=== PATIENT | male | born 1940 | race Caucasian/White ===

== ENCOUNTER 2025-05-29 10:44 | Emergency (ER) | payer MEDICARE, BC, SELFPAY ==
[2025-05-29 10:47] VITALS: BP 112/43
--- NOTE | 2025-05-29 11:10 | ED.GENMED ---
History of Present Illness
General
Chief Complaint: Fall
Source: patient
Exam Limitations: none
Time Seen by Provider: 05/29/25 10:52
Nursing documentation reviewed up to this point in time: agreed with
History of Present Illness
History of Present Illness:
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
Patient was being transported yesterday in a wheelchair van and slipped out of the wheelchair landing on his buttocks. He does not ambulate. He reports family noticed bruising to his buttock region and sent patient to the ER.
Patient denies hitting his head. He denies any neck pain. Patient is followed at [facility] for his cancer.
Past History
Past History
ED Past Medical History: Cancer (Kidney, prostate) and Hypercholesterolemia
ED Past Surgical History: Cholecystectomy and Urological (Right nephrectomy)
Social History
Tobacco: Former smoker
Alcohol: Occasional
Drug: None
Personal:
Living: with family
Phy Exam
General Physical Exam
General Presentation: no apparent distress
General age: appears stated age
General Skin: warm and dry
General Habitus: elderly
General Mental: alert
General Hydration: appears well hydrated
Cardiovascular Exam
Cardiovascular Exam: regular rate/rhythm, no murmur and normal peripheral pulses
Pulmonary Exam
Pulmonary Exam: lungs clear and no respiratory distress
Neurological Exam
Neurological Exam: alert and oriented x3
Musculoskeletal Exam
Musculoskeletal Exam: other (+ Ecchymosis to left buttocks also nickel sized area of stage II skin breakdown to buttocks)
Skin Exam
Skin Exam: normal color and warm/dry
Psychiatric Exam
Psychiatric Exam: normal mood/affect
Course
Orders/Labs/Results
Orders:
Orders
05/29/25 11:12
Coccyx/Sacrum, 2 View CR [CR Sacrum/coccyx Min 2 View] Urgent
Comment:
Reason For Exam: contusion
Lumbar Spine Complete, 4 View [CR Lumbar Spine Comp Min 4 Vw*] Urgent
Comment:
Reason For Exam: trauma
Vital Signs
Initial and Last Documented VS:
Initial Vital Signs
Temp Pulse Resp BP Pulse Ox
97.8 F 82 20 112/43 97
05/29/25 10:47 05/29/25 10:47 05/29/25 10:47 05/29/25 10:47 05/29/25 10:47
Last Documented Vital Signs
Temp Pulse Resp BP Pulse Ox
97.8 F 82 20 112/43 97
05/29/25 10:47 05/29/25 10:47 05/29/25 10:47 05/29/25 10:47 05/29/25 11:11
MDM/Problems Addressed
MDM/Problems Addressed:
84-year-old male with recent diagnosis of stage IV lung cancer with mets to the bone in March status post debulking surgery currently on radiation presented from home. Patient was being transported yesterday after radiation and slid out of his
wheelchair hitting his buttock. Patient has small Liao bruising to left buttock no other back injury. Also noted was an incidental stage II pressure sore to the buttock region. X-rays are negative of the sacrum coccyx and lumbar spine. Patient
had no head injury no headache complaint no nausea vomiting normal mental status.
Family at bedside.
Patient is stable for discharge home. Family does report patient will be going to rehab after his radiation is complete in the next 5 doses. Family does report patient has visiting nurses at home and Pt /OT.
Chronic conditions affecting care:
Stage IV lung cancer with metastasis to spine status post debulking surgery followed at [place]
*Radiology
Radiology exam reviewed: radiology read reviewed
*Pulse Oximetry
SaO2: 97
Oxygen Mode of Delivery: Room air
Patient hypoxic: no
*Critical Care Note
Total Time (30-74mins, 75-104mins- exclusive of procedures): Not Applicable
ED Attending Note
-
Portions of this chart may have been created with voice recognition software.� Occasional wrong word or��sound alike� substitutions may have occurred due to the inherent limitations of voice recognition software.
Discharge Plan
Departure
Patient Disposition: Admit
Date of Disposition: 05/29/25
Time of Disposition: 14:27
Admit to: Telemetry
Admit to doctor: hospitalist
Presentation/result/management discussed w/ accepting MD/DO: Hospitalist
Patient with high blood pressure during this ER visit?: No
Condition: Fair
Covid-19: Not Applicable
Discharge Problem:
Contusion, pressure sore of buttock
Instructions: Contusion (DC), Pressure sores
Prescriptions:
No Action
atorvastatin 40 MG tablet
40 mg PO QPM
amlodipine 5 MG tablet
5 mg PO DAILY
aspirin 81 MG tablet,chewable
81 mg PO MOWEFR
escitalopram oxalate 10 MG tablet
10 mg PO DAILY
cholestyramine (with sugar) 4 GM powder in packet
4 gm PO DAILY
vitamins A,C,N-vera-vldvdh [PreserVision AREDS] 1 CAP capsule
2 cap PO DAILY
silodosin [Rapaflo] 8 MG capsule
8 mg PO DAILY
multivitamin with folic acid [Tab-A-John] 1 TABLET tablet
1 tab PO DAILY
ascorbic acid (vitamin C) [Vitamin C] 500 MG tablet
1,000 mg PO BID Qty: 60 0RF
zinc sulfate 220 MG capsule
220 mg PO DAILY Qty: 30 0RF
cholecalciferol (vitamin D3) 2,000 UNITS tablet
2,000 units PO DAILY Qty: 30 0RF
guaifenesin [Mucus Relief ER] 600 MG tablet extended release 12hr
600 mg PO Q12 0RF
dexamethasone 2 MG tablet
6 mg PO DAILY 9 Days Qty: 27 0RF
prednisone 50 mg tablet
50 mg PO DAILY Qty: 1 0RF
Referrals:
Juventino Cook MD [Family Provider, Family Practice]
WOUND CARE,CENTER [[facility]]
Activity Restrictions/Additional Instructions:
As discussed follow-up with family doctor for reevaluation, wound center if needed return if any worsening of symptoms
Interventions
Interventions:
*Risk Screen - Suicide Last Done: 05/29/25 10:47
*General Assessment Last Done: 05/29/25 10:47
*Neglect/Abuse Screening Last Done: 05/29/25 10:47
Discharge Date and Time
Print Language: FIJIAN
[2025-05-29 13:00] VITALS: BP 149/65
[2025-05-29 14:00] VITALS: BP 142/66
--- NOTE | 2025-05-29 14:25 | EDCM ---
was asked to see pt and his family by Sol CARDONA. I met with pt, his and daughter bedside in ED. Per daughter, they are trying to get him into [facility] but he needs a medical form completed. They asked his Oncology team at [facility] but
they were told since he was last admitted here and is now in the ED maybe we could complete it. Oncology also suggested having PCP complete it but family said the PCP has not been closely following since his cancer diagnosis. Pt was last admitted to
in 2022 and has not been seen here since then. Pt agreed that his medical history has changed a lot since 2022. I suggested they ask [facility] again to complete the form as we do not have his most updated medical history here. Pt and
family in agreement. Sol updated.
== END 2025-05-29 18:47 | disposition home or self-care (01) ==
LOC: EMR 10:44
PROVIDERS: EMERGENCY PHYSICIAN Emergency Medicine; FAMILY PHYSICIAN Family Medicine
DX: L89.302 Pressure ulcer of unspecified buttock, stage 2 (principal); S30.0XXA Contusion of lower back and pelvis, initial encounter; W01.198A Fall on same level from slipping, tripping and stumbling with subsequent striking against other object, initial encounter; E78.00 Pure hypercholesterolemia, unspecified; I25.2 Old myocardial infarction; C34.90 Malignant neoplasm of unspecified part of unspecified bronchus or lung; Z85.118 Personal history of other malignant neoplasm of bronchus and lung; Z85.528 Personal history of other malignant neoplasm of kidney; Z87.891 Personal history of nicotine dependence; Z90.49 Acquired absence of other specified parts of digestive tract; Z90.5 Acquired absence of kidney; Z92.3 Personal history of irradiation
CPT/HCPCS: 99283; 72110; 72220

== ENCOUNTER 2025-06-06 16:07 | Inpatient (IN) | payer MEDICARE, BC, SELFPAY ==
[2025-06-06 11:55] VITALS: BP 119/71; BMI 24.4
--- NOTE | 2025-06-06 12:53 | ED.GENMED ---
History of Present Illness
General
Chief Complaint: Skin Problem
Source: patient, spouse and family (Daughter)
Time Seen by Provider: 06/06/25 12:28
History of Present Illness
History of Present Illness:
History from all 3. Patient is an 84-year-old male. Fell on May 29. Hit his buttock. Has had an ongoing wound in this general area but appears worse after the fall. Also concerned about a wound on the heel. Significant issues with ADL.
Lives at home. There is concern and inability to handle things at home at this time. No fever or chills. Primarily presents for wound evaluation and possible issues with ADL
Past History
Past History
ED Past Medical History: Cancer (Kidney, prostate), Hypercholesterolemia and Other (Paraplegia)
ED Past Surgical History: Cholecystectomy, Orthopedic and Urological (Right nephrectomy)
Social History
Tobacco: Former smoker
Alcohol: Occasional
Drug: None
Personal:
Living: with family
Phy Exam
Physical Exam
Physical Exam:
GENERAL: Alert and oriented in no apparent distress
EYE: Orbits normal.
NECK: Supple, no significant adenopathy.
ENT: Pharynx without erythema
CARDIAC: Regular rate and rhythm without any obvious murmurs.
LUNGS: Clear breath sounds,normal
ABDOMEN: Soft, without focal tenderness or distention
NEUROLOGICAL: Alert and oriented , paraplegia
SKIN: Warm and dry, large area of ecchymosis to the posterior sacral area with some surrounding erythema. No fluctuance no drainage. Some skin breakdown in this area. Open wound to the right heel with no obvious erythema.
MUSCULOSKELETAL: No edema,no deformity.Good color
PSYCH: Normal and appropriate interaction.
Course
Orders/Labs/Results
Orders:
Orders
06/06/25 12:51
Case Management Consult ONCE
Case Management Consult: Discharge Planning
IV Insert/Care/Rem.- Treatment PRN
06/06/25 12:59
CT Pelvis W/o Iv Contrast Urgent
Comment:
Reason For Exam: Evaluate depth of sacral wound
06/06/25 13:06
Basic Metabolic Panel Urgent
Complete Blood Count/With Diff Urgent
06/06/25 15:07
Piperacillin/Tazo 3.375 Gram [Zosyn] 3.375 gram in 50 ml IV NOW
06/06/25 15:42
Admit/Transfer Patient As Directed
Co-Sign Provider:
Level of Care: Inpatient admission
Assign to:: Medical/Surgical
Physician / Group: htay
Diagnosis: infected decubitus ulcer, Heel ulcer
Reason for Hospitalization: infected decubitus ulcer, Heel ulcer
Expected length of stay greater than two midnights?: Yes
ELOS- Estimated Length of Stay in days: 4
I certify the patient meets the requirements for IP care: Yes
06/06/25 15:44
Code Status As Directed
Resuscitation Status: Full Code
Abnormal Lab Results
06/06/25
13:06
WBC 15.4 H 10^3/uL
(4.8-10.8)
Hgb 10.6 L g/dL
(13.0-18.0)
Hct 35.7 L %
(39.0-52.0)
MCV 75.0 L fL
(80.0-94.0)
MCH 22.3 L pg
(27.0-31.0)
MCHC 29.7 L g/dL
(33.0-37.0)
RDW 19.9 H %
(11.5-14.5)
Abs Immat Gran (auto) 0.1 H 10^3/uL
(0-0.05)
Absolute Neuts (auto) 14.0 H 10^3/uL
(1.4-6.5)
Absolute Lymphs (auto) 0.4 L 10^3/uL
(1.2-3.4)
Absolute Monos (auto) 0.8 H 10^3/uL
(0.1-0.6)
Immature Gran % 0.6 H %
(0-0.5)
Neutrophils % 90.8 H %
(42.2-75.2)
Lymphocytes % 2.6 L %
(20.5-51.1)
Chloride 109 H mmol/L
(98-107)
BUN 28 H mg/dl
(9-20)
06/06/25 13:06
06/06/25 13:06
Vital Signs
Initial and Last Documented VS:
Initial Vital Signs
Temp Pulse Resp BP Pulse Ox
98.4 F 87 16 119/71 96
06/06/25 11:55 06/06/25 11:55 06/06/25 11:55 06/06/25 11:55 06/06/25 11:55
Last Documented Vital Signs
Temp Pulse Resp BP Pulse Ox
98.5 F 82 15 119/66 95
06/06/25 16:00 06/06/25 15:59 06/06/25 15:59 06/06/25 15:59 06/06/25 15:59
MDM/Problems Addressed
Differential Diagnosis Includes:
Wound and area of ecchymosis appears more dried blood then necrotic tissue. Possibly a slight secondary infectious component but mostly pressure sores or skin breakdown. Significant ADL issues. Workup in progress
*Radiology
Radiology exam reviewed: radiology read reviewed (Right paramidline decubitus no bony extension)
*Pulse Oximetry
SaO2: 96
Oxygen Mode of Delivery: Room air
Patient hypoxic: no
*Critical Care Note
Total Time (30-74mins, 75-104mins- exclusive of procedures): Not Applicable
Update Note
Update Note:
Infected decubitus. ADL issues. Inpatient IV antibiotics and further care. Case management involved
ED Attending Note
-
Portions of this chart may have been created with voice recognition software.� Occasional wrong word or��sound alike� substitutions may have occurred due to the inherent limitations of voice recognition software.
Discharge Plan
Departure
Patient Disposition: Admit
Date of Disposition: 06/06/25
Time of Disposition: 15:08
Presentation/result/management discussed w/ accepting MD/DO: Hospitalist
Discharge Problem:
Infected decubitus ulcer, Heel ulcer, Leukocytosis, ADL issues
Interventions
Interventions:
*Risk Screen - Suicide Last Done: 06/06/25 11:55
*General Assessment Last Done: 06/06/25 11:55
*Neglect/Abuse Screening Last Done: 06/06/25 11:55
ED-Skin Assessment Last Done: 06/06/25 14:05
[2025-06-06 13:17] LABS: Hematocrit 35.7 % (39.0-52.0); Hemoglobin 10.6 g/dL (13.0-18.0); Mean Corp Hgb Conc. 29.7 g/dL (33.0-37.0); Mean Corpuscular Volume 75.0 fL (80.0-94.0); Nucleated Red Blood Cells % 0 % (-); Platelet Count 266 10^3/uL (130-400); Red Cell Dist. Width 19.9 % (11.5-14.5)
[2025-06-06 13:37] LABS: Blood Urea Nitrogen 28 mg/dl (9-20); Calcium 10.2 mg/dl (8.4-10.2); Carbon Dioxide 30 mmol/L (22-30); Chloride 109 mmol/L (98-107); Estimated Creatinine Clearance 72 ml/min; Glucose 91 mg/dl (70-99); Sodium 139 mmol/L (135-145); eGFR > 60.00
--- NOTE | 2025-06-06 14:34 | CM ---
Patient seen at bedside with and daughter in ED. Patient states that he is needing SNF. Patient states that she and daughter with [facility] PT/OT and aides from [facility]- 4 hours daily have been caring for patient since 05/19/25 when
[facility] Patient had been at rehab and was getting better prior to a fall while going to radiation per daughter. Patient and family confirm he is not going for any further radiation or treatment for issues with his
back. Patient for CT scan and therapy assessment. But patient daughter and indicate that patient had been talking to [facility]; Carolyn and Sudeep admissions staff and have an interview scheduled for sun of next week for admission. Patient daughter
understands that patient has until 06/18/25 to enter SNF under qualifying prior stay at [facility]. Patient is in agreement and wants to go to [facility] for care. Patient PCP is Dr. Cook and he uses the [facility] in [place] for his pharmacy needs.
Pending physician assessment INP vs OBS CM will return to complete paperwork. CM will continue to follow for discharge planning needs.
Plan; SNF; [facility] need referral via all scripts
[2025-06-06] MEDS: ZOSYN 50 IV ×2 (15:14→21:57)
--- NOTE | 2025-06-06 15:14 | HPS.HSE ---
Family Physician
-
Family Physician: Juventino Cook
Chief Complaint
-
Primarily presents for wound evaluation and possible issues with ADL
History of Present Illness
HPI
84M from home , former smoker, Paraplegic, DLP, HTN, Depression, HC Kidney and prstate CA, R Nephrectomy, Unilateral Lt Kidney with presrved renal function seen at ER;
- Fell on May 29 and hit his buttock
- ongoing wound in this general area but appears worse after the fall
- Also concerned about a wound on the heel.
- Significant issues with ADL. Lives at home
- concern and inability to handle things at home at this time.
HX stage IV lung CA , Mets to Lx spine
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
He became paraplegic after above surgery
Lives at home and Paraplegic, WC Bound
No fever or chills.
Primarily presents for wound evaluation and possible issues with ADL - CRM involved at ER
Medical History
Past Medical History
Past Medical History: Reports Cancer (Cancer (Kidney, prostate), ), HTN, Hypercholesterolemia, Psychiatric (depression ) and Other (paraplegic )
Past Surgical History: Reports Cholecystectomy, Orthopedic and Urological ( R Nephrectomy)
Social History
Tobacco: Former Smoker
Family History
Family History: Not pertinent
Allergies / Home Medications
Allergies reflects when Allergies were last updated in [facility].
Home Medications with original date entered in [facility]
Allergy/Medication List:
Allergies
Allergy/AdvReac Type Severity Reaction Status Date / Time
Iodinated Contrast Media Allergy facial Verified 06/06/25 11:54
swelling
procaine (From Novocain) Allergy syncope Verified 06/06/25 11:54
shellfish derived Allergy Swelling Verified 06/06/25 11:54
Home Medications
amlodipine 5 mg tablet 5 mg PO DAILY Blood pressure 07/22/21
aspirin 81 mg chewable tablet 81 mg PO MOWEFR Blood clot prevention/tx 07/22/21
atorvastatin 40 mg tablet 40 mg PO QPM High cholesterol 07/22/21
cholestyramine (with sugar) 4 gram powder for susp in a packet 4 gm PO DAILY High cholesterol 07/22/21
escitalopram oxalate 10 mg tablet 10 mg PO DAILY ANXIETY/DEPRESSION 07/22/21
multivitamin with folic acid 400 mcg tablet (Tab-A-John) 1 tab PO DAILY Supplement 07/22/21
silodosin 8 mg capsule (Rapaflo) 8 mg PO DAILY Urinary issue 07/22/21
vitamins A,C,S-dgvd-wggonn 4,296 mcg-226 mg-90 mg capsule (PreserVision AREDS) 2 cap PO DAILY Supplement 07/22/21
ascorbic acid (vitamin C) 500 mg tablet (Vitamin C) 1,000 mg (2 x 500 mg) PO BID #60 tabs 07/23/21
cholecalciferol (vitamin D3) 50 mcg (2,000 unit) tablet 2,000 units PO DAILY #30 tabs 07/23/21
dexamethasone 2 mg tablet 6 mg (3 x 2 mg) PO DAILY 9 days ##27 07/23/21
guaifenesin 600 mg tablet, extended release 12 hr (Mucus Relief ER) 600 mg PO Q12 07/23/21
zinc sulfate 50 mg zinc (220 mg) capsule 220 mg (4.4 x 50 mg zinc (220 mg)) PO DAILY #30 caps 07/23/21
prednisone 50 mg tablet 50 mg PO DAILY #1 tab 02/09/23
Review of Systems
-
Constitutional: Reports No Symptoms
EENT: Reports No Symptoms
Respiratory: Reports No Symptoms
Cardiac: Reports No Symptoms
Abdomen/GI: Reports No Symptoms
: Reports No Symptoms and Other (scral decub and non healing R heel ulcer )
Skin: Reports No Symptoms
Neurological: Reports No Symptoms
Endocrine: Reports No Symptoms
Hematologic/Lymphatic: Reports No Symptoms
Psych: Reports No Symptoms
Physical Exam
Vital Signs
Vital Signs
Temp Pulse Resp BP Pulse Ox
98.3 F 87 16 119/71 96
06/06/25 14:00 06/06/25 11:55 06/06/25 11:55 06/06/25 11:55 06/06/25 12:54
Physical Exam
General: Well Developed, Well Nourished and No Apparent Distress
HEENT: NormoCephalic, Moist mucous membranes and Atraumatic
Respiratory: Clear
Cardiac: S1/S2 and Regular Rhythm; No Murmur or Rub
GI: Soft, Non Tender, Non Distended and Normal Bowel Sounds; No Organomegaly
Rectal: Deferred by Provider
Musculoskeletal: No Clubbing, No Cyanosis and No Edema
Skin: Other (large area of ecchymosis to the posterior sacral area with some surrounding erythema. No fluctuance no drainage. Some skin breakdown in this area. Open wound to the right heel with no obvious erythema.)
Neuro: Awake, Alert, AO x 3 and Other (Paraplegic )
Laboratory Results
-
06/06/25 13:06
06/06/25 13:06
Data Reviewed
-
CT Scan: Report Reviewed by me
Impression/Plan
-
Vital Signs
Temp Pulse Resp BP Pulse Ox
98.3 F 87 16 119/71 96
06/06/25 14:00 06/06/25 11:55 06/06/25 11:55 06/06/25 11:55 06/06/25 12:54
Labs
06/06/25
13:06
WBC 15.4 H
Hgb 10.6 L
Plt Count 266
06/06/25
13:06
Sodium 139
Chloride 109 H
Carbon Dioxide 30
BUN 28 H
Creatinine 0.7
Estimated Creat Clear 72
eGFR > 60.00
CT Pelvis W/o Iv Contrast
- Right para midline sacral decubitus ulcer measures approximately 2.3 (transverse) x 1.0 (depth) x 5.4 (craniocaudal) cm, at the level of the sacrococcygeal junction.
extension to the underlying bone.
- Limited evaluation of pelvic viscera demonstrates diverticulosis coli.
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
- Evaluation of additional soft tissue structures such as ligaments and tendons is limited by CT. Grossly, no abnormalities noted.
Last hospitalist admission: 09/21/2020 - 07/23/2021
DISCHARGE DIAGNOSES:
1. Pneumonia due to COVID-19 infection.
2. Exertional hypoxia.
3. Essential hypertension.
4. Hyperlipidemia.
5. Depression.
Pending Rx reconciliation
ASSESSMENT & PLAN
R para midline sacral decubitus ulcer ( 2.3 (transverse) x 1.0 (depth) x 5.4 (craniocaudal) cm) @ level of the sacrococcygeal junction - presumed infected
- No CT evidence of extension to the underlying bone.
- RT Heel ulcer
- Paraplegic
- Leukocytosis but afebrile
- Empiric Zosyn
- WD care consult
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
He became paraplegic after above surgery
Lives at home with family WC Bound
- decompensated ADL function due to infected pressure ulcers
- CRM consult
Essential HTN
- No longer on Amlodipine
HLD
- No longer on on Lipitor
Depression
HX Kidney and prostate CA
HX R Nephrectomy
Unilateral Lt Kidney with preserved renal function
DVT Px: SQH
Full code
IP MS
[2025-06-06 15:59] VITALS: BP 119/66
[2025-06-06 18:00] VITALS: BP 117/74
--- NOTE | 2025-06-06 19:30 | PTCARENOTE ---
Assumed care of patient from previous RN - patient had just arrived to unit during change of shift. Patient is alert and oriented, no complaints at this time. Pulled to bed from stretcher with dayshift staff - patient is paraplegic to LEs following
complications from back surgery earlier this year 2024. Falls at home - placed on bed alarm. Call pineda in reach, will monitor.
[2025-06-06] MEDS: NSS 1000 IV (21:55)
[2025-06-06] MEDS: LIPITOR 40 MG PO (21:56)
[2025-06-06] MEDS: TYLENOL PO ×2 (21:56→23:49)
[2025-06-06] MEDS: TYLENOL 650 MG PO (21:57)
[2025-06-06 23:00] VITALS: BP 86/55
[2025-06-06 23:09] VITALS: BP 86/64
--- NOTE | 2025-06-06 23:23 | PTCARENOTE ---
Addendum entered by Blessing Zeng RN 06/06/25 23:52:
IVF bolus ordered and provided, running now, see MAR. Straight cathed for 550mls clear yellow urine.
Original Note:
Blood pressure low during rounds, manual check 86/64 to left arm. IVFs running per MD orders. Patient offers no complaints at this time. Notified SENG Stoner - request to check bladder scan for urine retention. Patient incontinent of urine,
states he has had issues with incontinence since the surgery that paralyzed him earlier this year. Bladder scan revealed 428mls. ROOF SLATER notified of bladder scan results. Awaiting further instruction.
[2025-06-06] MEDS: NSS 250 IV (23:49)
[2025-06-07] MEDS: ZOSYN 50 IV ×4 (02:57→21:46)
[2025-06-07 03:02] VITALS: BP 90/56
--- NOTE | 2025-06-07 03:16 | PTCARENOTE ---
BP rechecked following IVF bolus -- . Notified CERTIFIED MEDICAL DOSIMETRIST - stat dose Midodrine ordered. Will provide once verified by pharmacy. Patient is resting comfortably in bed, will monitor.
[2025-06-07] MEDS: TYLENOL 650 MG PO ×5 (03:22→21:44)
[2025-06-07 06:56] LABS: Hematocrit 29.1 % (39.0-52.0); Hemoglobin 8.9 g/dL (13.0-18.0); Mean Corp Hgb Conc. 30.6 g/dL (33.0-37.0); Mean Corpuscular Volume 73.1 fL (80.0-94.0); Platelet Count 225 10^3/uL (130-400); Red Cell Dist. Width 19.3 % (11.5-14.5)
[2025-06-07 07:31] LABS: Blood Urea Nitrogen 29 mg/dl (9-20); Calcium 9.3 mg/dl (8.4-10.2); Carbon Dioxide 28 mmol/L (22-30); Chloride 107 mmol/L (98-107); Estimated Creatinine Clearance 50 ml/min; Glucose 92 mg/dl (70-99); Potassium 4.2 mmol/L (3.5-5.1); Sodium 136 mmol/L (135-145); eGFR > 60.00
[2025-06-07 07:47] VITALS: BP 98/56
[2025-06-07] MEDS: LOW STRENGTH ASPIRIN 81 MG PO (09:35)
[2025-06-07] MEDS: NORVASC PO (09:38)
--- NOTE | 2025-06-07 13:33 | W.PN.HOSP.TC ---
Today's Communication/Plan
-
Assessment / Plan
Assessment / Plan
General: No Apparent Distress, Comfortable and Conversant
HEENT: NormoCephalic, Moist mucous membranes, Atraumatic
Respiratory: Clear and Non Labored Respirations
Cardiac: S1/S2 and Regular Rhythm; No Rub or Gallop
GI: Soft, Non Tender, Non Distended and Normal Bowel Sounds
Musculoskeletal: No Edema, no deformity
Skin: Warm and dry, sacral ulcer
: NO Sidid[place]
Neuro: Awake, Alert, no tremor
Psych: Calm and cooperative
Mr. Arreola is a 84-year-old male with a medical history of stage IV lung cancer with mets to spine, paraplegia following spinal injury following debulking surgery for metastasis, and hypertension who presented for evaluation of sacral ulcer. He
fell on May 29 and injured his buttocks. The wound at the area has become grossly worse since that time. He is having difficulty with ADLs due to his wound. In the ED his sacral wound appeared infected and so he was admitted for further
evaluation and management.
Infected sacral wound:
- No evidence of osteomyelitis or abscess on imaging
- Continue antibiotics with Zosyn
- Local wound care, wound care team consulted
- Also has additional right heel ulcer to be addressed by wound care team
- IV fluids
- Remains afebrile
DVT prophylaxis: Lovenox
CODE STATUS: Full code
Anticipated Discharge: 24 - 48 hours
Subjective/Interval History
-
Date of Service: June 07, 2025
Patient was seen and examined at bedside this morning. Continuing antibiotics and local wound care for sacral ulcer.
Objective Data
-
Labs:
Laboratory Results
06/07/25
06:23
WBC 14.7 H
Hgb 8.9 L
Hct 29.1 L
Plt Count 225
Sodium 136
Potassium 4.2
Chloride 107
Carbon Dioxide 28
BUN 29 H
Creatinine 1.0
Glucose 92
Calcium 9.3
Vital Signs:
Vital Signs
Temp Pulse Resp BP Pulse Ox
98.8 F 80 16 98/56 96
06/07/25 07:47 06/07/25 09:38 06/07/25 07:47 06/07/25 09:38 06/07/25 10:30
I&O
06/06/25 06/07/25 06/08/25
06:59 06:59 06:59
Output Total 550 / 550
Balance -550 / -550
Review of Systems
-
History Source: Patient
All other systems: Reviewed and negative
Physical Exam
-
General: No Apparent Distress
[2025-06-07 15:38] VITALS: BP 104/53
[2025-06-07] MEDS: NSS 1000 IV (15:39)
[2025-06-07] MEDS: LOVENOX 40 MG SC (17:16)
[2025-06-07] MEDS: LIPITOR 40 MG PO (17:16)
[2025-06-07] MEDS: NSS IV (17:49)
[2025-06-07 23:00] VITALS: BP 97/48
--- NOTE | 2025-06-07 23:48 | W.PN.UPDATE ---
Update Note
Progress Note Update
Patient is hypotensive with bp 84/42, hr 90. Asymptomatic. NSS bolus of 250cc and one time order of midodrine 5mg was given.
[2025-06-08] MEDS: NSS 250 IV (00:25)
[2025-06-08] MEDS: TYLENOL PO ×3 (00:25→03:07)
[2025-06-08] MEDS: ZOSYN 50 IV ×4 (02:46→20:24)
[2025-06-08 06:00] VITALS: BP 116/66; BP 125/75
[2025-06-08 07:00] VITALS: BP 108/65
[2025-06-08] MEDS: LOW STRENGTH ASPIRIN 81 MG PO (09:18)
[2025-06-08] MEDS: TYLENOL 650 MG PO ×4 (09:19→20:22)
[2025-06-08] MEDS: NORVASC PO (09:19)
--- NOTE | 2025-06-08 09:28 | CM ---
Call received from Marvel's daughter, Izabela Bey, who is following up regarding admission to [facility]. Izabela advised that her father was to have an interview/meeting at [facility] on June 10, 2025. Financial information was provided
to [facility] by family.
Referral sent to [facility] via [facility] today for consideration of admission.
Plan: Follow up with [facility] regarding acceptance.
[2025-06-08 11:02] VITALS: BMI 24.4
--- NOTE | 2025-06-08 11:06 | WOUNDNOTE ---
MID UPPER BACK
--- NOTE | 2025-06-08 11:10 | WOUNDNOTE ---
[facility] RN note: Patient admitted with infected decubitus ulcer.
See H&P for complete history. Recent fall out of wheelchair onto buttocks.
PMH: Past Medical History: Reports Cancer (Cancer (Kidney, prostate), ), HTN, Hypercholesterolemia, Psychiatric (depression ) and Other (paraplegic )
Past Surgical History: Reports Cholecystectomy, Orthopedic and Urological ( R Nephrectomy)
Wound Location and type/assessment: Patient admitted with: DTI of Sacrum, dark maroon/purple discolored skin, no odor and scant drainage. Pelvis CT showed no bone involvement. Patient incontinent of urine and stool during assessment, student nurse
assisted with care. Patient states he has no feeling in legs, unable to move them during turning. R lateral and medial heel with unstageable PI, dark brown eschar laterally, flat light purple blister medially. L heel intact, L lateral ankle with
unstageable PI and L plantar foot with dry blood filled appearing blister. Offloading heel boots in use that patient states were started here on admission. Middle upper back with scabbing and blanchable red line from past surgery. R elbow with tiny
skin tear, scant drainage. Patient confirmed he has been in bed allot.
Appetite: Fair, dietary following.
Pressure redistribution devices in place: Centrella max air bed in use, air cushion and TruVue lite heel boots.
Plan: Foam dressings changed, painted eschar on R heel, L lateral ankle with Betadine and silicone foam. Adaptic and silicone foam applied to Sacrum, suspect will open up and start to drain more. May need surgical consult if does not improve. Will
order Santyl to start tomorrow but stool might contaminate area. Repositioned onto R semi side lying position with assist of student nurse. Foam dressing changed on R arm and upper back applied protective foam.
Will confirm orders with hospitalist and updated nurse Shanti, recommended male external urine research & analytics manager.
Updated care plan and will follow as needed.
Note to case management of equipment requested for discharge: SNF
Recommend follow up at wound care center upon discharge.
[2025-06-08 11:36] LABS: Hematocrit 28.2 % (39.0-52.0); Hemoglobin 8.5 g/dL (13.0-18.0); Mean Corp Hgb Conc. 30.1 g/dL (33.0-37.0); Mean Corpuscular Volume 74.4 fL (80.0-94.0); Nucleated Red Blood Cells % 0 % (-); Platelet Count 223 10^3/uL (130-400); Red Cell Dist. Width 19.4 % (11.5-14.5)
--- NOTE | 2025-06-08 11:44 | W.PN.HOSP.TC ---
Today's Communication/Plan
-
Inflammatory markers
Anemia labs
ID consult
Surgical consult
Assessment / Plan
Assessment / Plan
General: No Apparent Distress, Comfortable and Conversant
HEENT: NormoCephalic, Moist mucous membranes, Atraumatic
Respiratory: Clear and Non Labored Respirations
Cardiac: S1/S2 and Regular Rhythm; No Rub or Gallop
GI: Soft, Non Tender, Non Distended and Normal Bowel Sounds
Musculoskeletal: No Edema, no deformity
Skin: Warm and dry, sacral ulcer
: NO Siddiqui
Neuro: Awake, Alert, no tremor
Psych: Calm and cooperative
Sepsis due to infected sacral wound -sepsis present on admission.
- No evidence of osteomyelitis or abscess on CT without contrast.
Currently on IV Zosyn
- Local wound care, wound care team consulted
Wound care nurse consulted. Note reviewed.
Surgical consult for possible debridement of sacrum. ID consult. Check inflammatory markers.
Multiple decubital wounds -noted on left lateral ankle, left heel, right lateral heel, right medial heel, sacrum. Wound care consulted.
Microcytic anemia -unknown acuity, etiology. Will check anemia labs.
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
Paraplegia -after spinal debulking surgery for acute cord compression at [facility].
Essential hypertension
Hyperlipidemia -atorvastatin.
Depression
DVT prophylaxis: Lovenox
Full code
Dispo -anticipate correction placement on discharge. Patient states that family can no longer care for him.
Anticipated Discharge: > 48 hours
Subjective/Interval History
-
Date of Service: June 08, 2025
Patient seen and examined, no complaints.
Objective Data
-
Labs:
Laboratory Results
06/08/25
11:22
WBC 13.5 H
Hgb 8.5 L
Hct 28.2 L
Plt Count 223
Vital Signs:
Vital Signs
Temp Pulse Resp BP Pulse Ox
99.6 F 107 14 108/65 96
06/08/25 07:00 06/08/25 09:19 06/08/25 07:00 06/08/25 09:19 06/08/25 07:00
I&O
06/07/25 06/08/25 06/09/25
06:59 06:59 06:59
Intake Total 840 / 840
Output Total 550 / 550
Balance -550 / -550 840 / 840
Review of Systems
-
History Source: Patient
All other systems: Reviewed and negative
--- NOTE | 2025-06-08 12:07 | CON.ID ---
Consultation
-
Date/Time Consultation Requested: 06/08/25 11:13
Date/Time Consultation Performed: 06/08/25 12:08
Requesting Provider: Dr Jensen
Performing Provider: Dr Arreola
Reason for Consultation: sacral wound infection
Chief Complaint / Past History
Chief Complaint
sacral wound
History of Present Illness
Mr Arreola is an 84 year old male presenting for a sacral wound; patient is paraplegic after debulking spine surgery for acute cord compression of metastatic stage IV lung cancer. May 29 he fell onto his buttock and sustained a wound, there is
also a developing wound on the heel. Reports no fevers or chills.
Since arrival here he has been afebrile, bp overall stable, wbc 15.4 now 13.5, hgb 8.5, plt 223, L shift is noted, cr 0.7, CT pelvis sacral decubitus ulcer approximately 2.3 x 1.0 x 5.4 cm without underlying extension to the bone. Multiple
decubital wounds on left lateral ankle, left heel, right lateral heel, right medial heel, sacrum. Wound care consulted. MRSA nasal screen negative.
Past History
Additional Past Medical History:
(Cancer (Kidney, prostate) HTN, Hypercholesterolemia, Psychiatric (depression ) and Other (paraplegic )
Additional Past Surgical History:
Cholecystectomy, Orthopedic and Urological ( R Nephrectomy)
Allergy History:
Iodinated Contrast Media Allergy (Verified 06/06/25 11:54)
facial swelling
procaine (From Novocain) Allergy (Verified 06/06/25 11:54)
syncope
shellfish derived Allergy (Verified 06/06/25 11:54)
Swelling
Medications Reviewed: Yes
Social History
Tobacco: Former Smoker
Family History
Family History: Not Pertinent
Review of Systems
Review of Systems
Constitutional: Reports No Symptoms
EENT: Reports No Symptoms
Respiratory: Reports No Symptoms
Cardiac: Reports No Symptoms
Abdomen/GI: Reports No Symptoms
: Reports No Symptoms and Other (scral decub and non healing R heel ulcer )
Skin: Reports No Symptoms
Neurological: Reports No Symptoms
Endocrine: Reports No Symptoms
Hematologic/Lymphatic: Reports No Symptoms
Psych: Reports No Symptoms
Vital Signs
Temp Pulse Resp BP Pulse Ox
99.6 F 107 14 108/65 96
06/08/25 07:00 06/08/25 09:19 06/08/25 07:00 06/08/25 09:19 06/08/25 07:00
Physical Exam
Physical Exam
Constitutional: No Acute Distress
Cardiovascular: Regular Rate and S1/S2; Negative Murmur or Rub
Pulmonary: Clear and Symmetric; Negative Wheezes, Rales or Rhonchi
Gastrointestinal: Soft, Non Tender, Non Distended and Normal Bowel Sounds
Skin: Warm and Dry; Negative Rash or Jaundice
Wound: Other (small eschar with some surrounding erythema; decubitus of the other areas reviewed and no erythema)
Lab / Diagnostic Study Results
06/08/25 11:22
06/07/25 06:23
Abs Immat Gran (auto) 0.1 10^3/uL (0-0.05) H 06/08/25 11:22
Absolute Neuts (auto) 12.0 10^3/uL (1.4-6.5) H 06/08/25 11:22
Absolute Lymphs (auto) 0.3 10^3/uL (1.2-3.4) L 06/08/25 11:22
Absolute Monos (auto) 0.8 10^3/uL (0.1-0.6) H 06/08/25 11:22
Absolute Basos (auto) 0.0 10^3/uL (0-0.2) 06/08/25 11:22
Immature Gran % 0.7 % (0-0.5) H 06/08/25 11:22
Neutrophils % 89.1 % (42.2-75.2) H 06/08/25 11:22
Lymphocytes % 2.5 % (20.5-51.1) L 06/08/25 11:22
Monocytes % 5.9 % (1.7-9.3) 06/08/25 11:22
Eosinophils % 1.7 % (0-6) 06/08/25 11:22
Basophils % 0.1 % (0-2) 06/08/25 11:22
Microbiology Results
Micro:
06/06/25 23:48 MRSA Screen - Final
Nose No Methicillin Resistant Staphylococcus aureus isolated.
Assessment / Plan
Sacral decubitus wound with eschar
Paraplegia
Stage IV lung cancer with bone mets
- not colonized with MRSA
- possible debridement with surgery
- continue zosyn for present
- offloading of the wound as feasible
--- NOTE | 2025-06-08 12:45 | CM ---
CM contacted pt's daughter to update her regarding transfer to [facility].
Due to the hol, admissions is closed.
Pt with multiple wounds, ID and surgery consulted.
CM to follow up with Winter Yoder and family tomorrow.
[2025-06-08 12:49] LABS: Reticulocyte Count 2.1 % (0.4-2.8)
[2025-06-08 14:25] LABS: Iron 25 ug/dl (49-181)
[2025-06-08 14:41] LABS: Total Iron Binding Capacity 193 ug/dl (261-462)
[2025-06-08 14:52] LABS: C-Reactive Protein 167.10 mg/L (0.0-10.00)
[2025-06-08 15:03] LABS: Ferritin 109.0 ng/ml (17.9-464.0)
[2025-06-08 15:34] VITALS: BP 125/58
[2025-06-08 15:34] LABS: Folate 11.6 ng/ml (2.76-20); Vitamin B12 689 pg/ml (239-931)
--- NOTE | 2025-06-08 16:29 | CON.GS ---
Addendum entered and electronically signed by Hany Brewer MD 06/08/25 19:19:
I saw and examined the patient independently.
The Third Miller's note was reviewed and I agree with the note, assessment and plan except where noted below.
Comment: This is an 84-year-old male with significant past medical history most notably stage IV lung cancer with mets to the spine, paraplegia who suffered a recent fall and developed a traumatic sacral wound for which we are consulted. On exam he
has a 5 cm black eschar overlying the sacrum making this an unstageable wound. His CT scan was reviewed which shows an ulcer without underlying bone involvement.
Had a discussion with family (patient in the room, and daughter on the phone) about surgical options. Would generally favor a staged incision debridement followed by a diverting colostomy. They are okay with moving forward with part 1 but would
like to discuss this further before they make a final decision.
The patient is tentatively added on tomorrow for sacral wound debridement in the OR with Dr. Boo.
N.p.o. after midnight.
IV antibiotics ordered.
Risk benefits and alternatives reviewed with the patient. Consent not obtained.
I spent 75 minutes in total for the care of this patient today including direct patient care and counseling, reviewing labs, imaging, coordination of care, as well as documentation.
Original Note:
Consultation
-
Date/Time Consultation Performed: 06/08/25 1620
Medical History
-
Chief Complaint: sacral wound
History of Present Illness:
84 yo male with a h/o renal ca s/p right nephrectomy, prostate ca s/p XRT, stage 4 lung cancer with mets to spine who is a paraplegic after debulking spine surgery for acute cord compression with first dose XRT on 05/28 who suffered a fall with
buttock wound noted when transferring during transportation to radiation center. He was evaluated in the ED an discharged for outpatient wound care at that time. He has been living in a care home apartment with his , but notes that he has
had difficulty with ADL's and will be trying to go to a rehab facility. He presents for evaluation of the wound as it has worsened over the past 2 weeks. Unstageable ulcer noted over the sacrum with overlying black eschar tissue noted. He notes no
sensation to the wound and is incontinent of both bowel and bladder.
Past Medical History
Past Medical History: Cancer (renal, prostate, stage 4 lung with mets to spine s/p XRT), Hypercholesterolemia and Other (paraplegia)
Past Surgical History: Cholecystectomy, Urological (right nephrectomy for CA) and Other (debulking spine surgery)
Social History
Tobacco: Former Smoker
Alcohol: Occasional
Family History
Family History: Reviewed & Not Pertinent
Allergies / Home Medications
Allergy/AdvReac Type Severity Reaction Status Date / Time
Iodinated Contrast Media Allergy facial Verified 06/06/25 11:54
swelling
procaine (From Novocain) Allergy syncope Verified 06/06/25 11:54
shellfish derived Allergy Swelling Verified 06/06/25 11:54
�Medication �Instructions �Recorded �Confirmed �Type
aspirin 81 mg chewable tablet 81 mg PO DAILY Blood clot 07/22/21 06/06/25 History
prevention/tx
atorvastatin 40 mg tablet 40 mg PO QPM High cholesterol 07/22/21 06/06/25 History
cholestyramine (with sugar) 4 gram 4 gm PO Q48H High cholesterol 07/22/21 06/06/25 History
powder for susp in a packet
vitamins A,C,R-hcuc-iwbxcm 4,296 1 cap PO DAILY Supplement 07/22/21 06/06/25 History
mcg-226 mg-90 mg capsule
(PreserVision AREDS)
acetaminophen 325 mg tablet 650 mg PO Q6HPRN PRN mild pain 06/06/25 06/06/25 History
(Tylenol)
albuterol sulfate 90 mcg/actuation 2 puff inhalation R Q6HPRN PRN sob 06/06/25 06/06/25 History
aerosol inhaler
dexamethasone 2 mg tablet 4 mg PO BID Anti-Inflammatory 06/06/25 06/06/25 History
docusate sodium 100 mg capsule 100 mg PO DAILYPRN PRN constipation 06/06/25 06/06/25 History
(Colace)
enoxaparin 40 mg/0.4 mL 40 mg SC QPM Blood Clot 06/06/25 06/06/25 History
subcutaneous syringe (Lovenox) Prevention/Tx
ferrous sulfate 325 mg (65 mg 325 mg PO DAILY Supplement 06/06/25 06/06/25 History
iron) tablet
pantoprazole 40 mg tablet,delayed 40 mg PO DAILY Gastrointestinal 06/06/25 06/06/25 History
release (Protonix) Issue
polyethylene glycol 3350 17 gram 17 g PO DAILY Constipation 06/06/25 06/06/25 History
oral powder packet (Miralax)
tamsulosin 0.4 mg capsule (Flomax) 0.4 mg PO DAILY Urinary Issue 06/06/25 06/06/25 History
umeclidinium 62.5 mcg-vilanterol 1 inh inhalation R DAILYPRN PRN sob 06/06/25 06/06/25 History
25 mcg/actuation powdr for
inhalation (Anoro Ellipta)
Review of Systems
-
History Source: Patient and Family
All other systems: Negative unless noted
A 10 point review of systems was completed, and was negative except as per HPI.
Physical Exam
Vital Signs
Temp Pulse Resp BP Pulse Ox
99.6 F 107 14 108/65 96
06/08/25 07:00 06/08/25 09:19 06/08/25 07:00 06/08/25 09:19 06/08/25 13:18
06/07/25 06/08/25 06/09/25
06:59 06:59 06:59
Actual Weight 70.5 kg
Body Mass Index (BMI) 24.4
Lab Results
06/08/25 11:22
06/07/25 06:23
WBC 13.5 10^3/uL (4.8-10.8) H 06/08/25 11:22
Hgb 8.5 g/dL (13.0-18.0) L 06/08/25 11:22
Hct 28.2 % (39.0-52.0) L 06/08/25 11:22
Plt Count 223 10^3/uL (130-400) 06/08/25 11:22
Abs Immat Gran (auto) 0.1 10^3/uL (0-0.05) H 06/08/25 11:22
Neutrophils % 89.1 % (42.2-75.2) H 06/08/25 11:22
Physical Exam
General: Well Developed and Well Nourished
HEENT: Moist Mucous Membranes
Respiratory: Non Labored Respirations
GI: Soft, Non Tender and Non Distended
Rectal: Brown
Skin: Warm and Other (Unstageable ulcer over the sacrum)
Neuro: Awake, Alert and AO x 3
Psych: Calm
Data Reviewed
-
CT Scan: Image Personally Visualized and interpreted, Report Reviewed by me, Discussed with Patient and Discussed with Family
Labs: Labs Reviewed by me, Discussed with Physician, Discussed with Patient and Discussed with Family
Old Records: Reviewed
Assessment / Plan
-
84 yo male with a h/o renal ca s/p right nephrectomy, prostate ca s/p XRT, stage 4 lung cancer with mets to spine who is a paraplegic after debulking spine surgery for acute cord compression s/p first dose XRT on 05/28 with fall that day causing an
injury to the buttock/sacrum now presenting with sepsis with possible source of this wound. The sacral wound bed is covered with overlying eschar tissue. Pelvic CT without abscess or noted extension into the underlying bone. Leukocytosis present but
trending down. Hypotension resolved, no tachycardia. Afebrile.
Plan:
NPO after MN for tentative debridement of the sacral wound
ABX as per primary
May benefit from diverting colostomy in the future to promote wound healing
[2025-06-08 16:34] VITALS: BP 125/58
[2025-06-08] MEDS: LOVENOX 40 MG SC (18:04)
[2025-06-08] MEDS: LIPITOR 40 MG PO (18:04)
[2025-06-08 23:00] VITALS: BP 112/56
[2025-06-09] VITALS (10 sets, daily range): BP systolic 94–125; BP diastolic 51–75
[2025-06-09] MEDS: TYLENOL PO ×5 (00:02→19:15)
[2025-06-09] MEDS: ZOSYN 50 IV ×3 (03:23→21:15)
[2025-06-09 08:38] LABS: Hematocrit 36.5 % (39.0-52.0); Hemoglobin 10.4 g/dL (13.0-18.0); Mean Corp Hgb Conc. 28.5 g/dL (33.0-37.0); Mean Corpuscular Volume 78.5 fL (80.0-94.0); Nucleated Red Blood Cells % 0 % (-); Platelet Count 240 10^3/uL (130-400); Red Cell Dist. Width 20.0 % (11.5-14.5)
[2025-06-09] MEDS: TYLENOL 650 MG PO (08:41)
[2025-06-09] MEDS: NORVASC 5 MG PO (08:42)
[2025-06-09] MEDS: LOW STRENGTH ASPIRIN 81 MG PO (08:42)
--- NOTE | 2025-06-09 08:56 | W.PN.GS2 ---
Addendum entered and electronically signed by Michael Boo MD 06/09/25 14:10:
Discussion by phone with patient's daughter. Current clinical situation was reviewed. Options for management were reviewed. Agreement that patient would like to proceed with a diverting colostomy and debridement of a sacral decubitus ulcer. We
discussed that given the patient's underlying medical condition, both of these procedures are in many ways palliative.
Plan for a laparoscopic assisted diverting colostomy and debridement of a sacral decubitus ulcer. The procedure itself, as well as the risks, benefits, and alternatives was discussed. Specifically, we discussed the risks of bleeding, infection,
injury to surrounding structures (bowel, bladder), stomal issues including leakage and hernia formation, wound issues related to his stoma necessitating further debridement procedures, and general anesthetic complications. Typical post procedure
recovery was discussed. All questions answered.
Original Note:
Today's Communication / Plan
-
-- Debridement of a sacral decubitus ulcer, OR timing pending patient consent (plans to talk with family today)
Assessment / Plan
-
Patient is an 84 yo M p/w failure to thrive at home, found to have a unstageable sacral decubitus ulcer
AVSS
Labs notable for mild rise in WBC
CT imaging was reviewed, no abscess or clear involvement of the bone.
The natural history and pathophysiology of sacral decubitus ulcers was discussed. Role of surgical debridement to remove any or infected tissue and provide a better assessment of the wound depth was discussed with the patient. Given the size
of this wound this is best performed in the operative setting. We discussed that at his age and general medical condition with paraplegia and incontinence of stool this will be a very difficult wound to heal even in the best of circumstances.
Previous discussions regarding the role of a diverting colostomy, which the patient and the family have declined. Currently on the schedule for operative debridement of a sacral decubitus ulcer today, however, patient states that he has not fully
made his decision and would like to further discuss things with his family. All questions answered.
-- Debridement of a sacral decubitus ulcer, OR timing pending patient consent (plans to talk with family today)
-- NPO, IVF
-- Abx: Zosyn
Subjective Data
-
Date of Service: June 09, 2025
No major complaints. Denies any pain as a relates to his sacrum. Reports drainage per nursing. Denies history of a sacral wound prior to recent traumatic event. No fevers.
Objective Data
-
Intake and Output
06/08/25 06/09/25 06/10/25
06:59 06:59 06:59
Intake Total 840 / 840 480 / 480
Balance 840 / 840 480 / 480
Intake:
Oral fluids 840 / 840 480 / 480
Other:
How many times incontinent 2
MODERATE amount urine
How many times incontinent 1 1
SATURATED amount urine
Vital Signs
Temp Pulse Resp BP Pulse Ox
98.6 F 111 20 125/75 95
06/09/25 07:29 06/09/25 07:29 06/09/25 07:29 06/09/25 07:29 06/09/25 07:29
Lab Results
06/09/25 07:38
06/07/25 06:23
Calcium 9.3 mg/dl (8.4-10.2) 06/07/25 06:23
Physical Exam
-
Gen: NAD
Abd: soft, NT/ND, non-peritonea, prior incisions well healed
Rectal: 5 cm black eschar overlying the sacrum, no active drainage, slightly soft, no visiable bone
Patient has a novak catheter: No
Patient has a central line: No
--- NOTE | 2025-06-09 10:49 | W.PN.ID1 ---
Date of Service
Date of Service: June 09, 2025
Today's Communication
continue zosyn, for possible debridement
Assessment / Plan
Sacral decubitus wound with eschar
Paraplegia
Stage IV lung cancer with bone mets
- not colonized with MRSA
- possible debridement with surgery
- continue zosyn for present
- offloading of the wound as feasible
Chief Complaint
-: Other (sacral decubitus ulcer)
Subjective / Review of Systems
afebrile
for debridement today
Vital Signs / Physical Exam
Vital Signs
Vital Signs
Temp Pulse Resp BP Pulse Ox
98.6 F 111 20 125/75 95
06/09/25 07:29 06/09/25 07:29 06/09/25 07:29 06/09/25 08:42 06/09/25 07:29
Physical Exam
Constitutional: No Acute Distress
Cardiovascular: Regular Rate and S1/S2; Negative Murmur or Rub
Pulmonary: Clear and Symmetric; Negative Wheezes or Rales
Gastrointestinal: Soft, Non Tender, Non Distended and Normal Bowel Sounds
Skin: Warm and Dry; Negative Rash or Jaundice
Wound: Other (deferred turning patient today)
Objective Data
Lab Data
Lab Results
06/09/25 07:38
06/07/25 06:23
ESR 105 mm/hour (0-20) H 06/08/25 11:22
Estimated Creat Clear 50 ml/min 06/07/25 06:23
C-Reactive Protein 167.10 mg/L (0.0-10.00) H 06/08/25 11:22
Most recent labs reviewed.
Micro Results:
06/06/25 23:48 MRSA Screen - Final
Nose No Methicillin Resistant Staphylococcus aureus isolated.
--- NOTE | 2025-06-09 12:14 | PN.CDI ---
CDI
- -
CDI:
Physician Documentation Request
Admit Date: 06/06/25 16:07
Dear Doctor Mikey,
Please review the following and provide your response in the progress notes.
Clinical Indicators:
Documentation includes the diagnosis of malnutrition. Other clinical indicators are:
[employer], 06/08
#Skin- Stage 3 R/heel ulcer, unstageable sacral wound.
#...meets criteria for severe protein calorie malnutrition of chronic illness with >7.5% wt loss
#...x 3 months, prolonged inadequate po intake for >1 month.
To ensure the quality of the medical record, based on the above information and the recognized standards for malnutrition , please verify in the progress notes which of the following responses best reflects the patient's nutritional status:
Severe Protein Calorie Malnutrition of chronic illness is/was present and is a clinical diagnosis (please provide additional support in the medical record)
Other (please specify)
[place] Criteria (ACP Hospitalist 2017)
2 or more criteria must be present for either
non severe or severe malnutrition
Note that the criteria differs related to the
presence of an acute or chronic illness
Chronic Illness
Energy Intake Non Severe: <75% for >1 month
Severe: <75% for >1 month
Weight Loss Non Severe: 5% over 1 month
7.5% over 3 months
10% over 6 months
20% over 1 year
Severe: >5% over 1 month
>7.5% over 3 months
>10% over 6 months
>20% over 1 year
Body Fat Non Severe: Mild Loss
Severe: Severe Loss
Muscle Mass Non Severe: Mild Loss
Severe: Severe Loss
Use of terms such as suspected, likely, concern for, or probable (associated with a specific diagnosis that is being evaluated, monitored, or treated as if it exists) are acceptable and can be coded in the inpatient setting, when documented at the
time of discharge.
Thank you,
Daly Byrne RN BSN CCDS
CDI Specialist
Please contact via tiger text
Please use your independent medical judgment in providing your response.
--- NOTE | 2025-06-09 12:47 | CM ---
CM spoke with Marvel's daughter this AM. Pt/family was unsure if they wanted to pursue surgical intervention. After speaking with the physicians, per daughter they are consenting to sacral debridement as well as colostomy.
--- NOTE | 2025-06-09 12:52 | W.PN.HOSP.TC ---
Addendum entered and electronically signed by Alonzo Jensen DO 06/09/25 13:19:
Severe protein calorie malnutrition of chronic illness
Original Note:
Today's Communication/Plan
-
Continue current care
Assessment / Plan
Assessment / Plan
General: No Apparent Distress, Comfortable and Conversant
HEENT: NormoCephalic, Moist mucous membranes, Atraumatic
Respiratory: Mild bilateral rhonchi
Cardiac: S1/S2 and Regular Rhythm; No Rub or Gallop
GI: Soft, Non Tender, Non Distended and Normal Bowel Sounds
Musculoskeletal: No Edema, no deformity
Skin: Warm and dry, sacral ulcer
: NO Siddiqui
Neuro: Awake, Alert, no tremor
Psych: Calm and cooperative
Sepsis due to infected sacral wound -sepsis present on admission.
- No evidence of osteomyelitis or abscess on CT without contrast.
Currently on IV Zosyn
- Local wound care, wound care team consulted
Surgical service correspondence reviewed. Recommendation for debridement and diverting colostomy later today. Patient and family have provided consent.
Elevated inflammatory markers noted. Concern for osteomyelitis of sacrum. Discussed with family in detail. For step will be for debridement to better assess depth of wound.
May need to get MRI if diagnosis remains unconfirmed.
Multiple decubital wounds -noted on left lateral ankle, left heel, right lateral heel, right medial heel, sacrum. Wound care consulted.
Microcytic anemia -unknown acuity. Hemoglobin stable.
No evidence of iron deficiency. B12 and folic acid levels normal. 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
COPD without exacerbation -on Anoro inhaler at home. Will use Spiriva, Advair in the hospital. Albuterol nebs as needed. Incentive spirometry.
Paraplegia -after spinal debulking surgery for acute cord compression at [facility].
Essential hypertension -stable.
Hyperlipidemia -atorvastatin.
Depression
DVT prophylaxis: Lovenox
Full code
Dispo -anticipate fdc placement on discharge. Patient states that family can no longer care for him.
Family updated at the bedside.
Anticipated Discharge: > 48 hours
Subjective/Interval History
-
Date of Service: June 09, 2025
Patient seen and examined, no complaints.
Objective Data
-
Labs:
Laboratory Results
06/09/25
07:38
WBC 14.8 H
Hgb 10.4 L D
Hct 36.5 L
Plt Count 240
Vital Signs:
Vital Signs
Temp Pulse Resp BP Pulse Ox
98.6 F 111 20 125/75 95
06/09/25 07:29 06/09/25 07:29 06/09/25 07:29 06/09/25 08:42 06/09/25 07:29
I&O
06/08/25 06/09/25 06/10/25
06:59 06:59 06:59
Intake Total 840 / 840 480 / 480
Balance 840 / 840 480 / 480
Review of Systems
-
History Source: Patient
All other systems: Reviewed and negative
[2025-06-09] MEDS: SPIRIVA RESPIMAT 2.5 MCG 2 PUFF INH (13:17)
[2025-06-09] MEDS: ADVAIR HFA 115/21 MCG INHALER 2 PUFF INH ×2 (13:17→19:18)
[2025-06-09] MEDS: SANTYL OINTMENT 1 APPLIC TOPICAL (13:50)
--- NOTE | 2025-06-09 15:00 | WOUNDNOTE ---
JONNIE RN NOTE: Stoma sited patient for Colostomy as requested by Dr. Boo. Sacral ulcer also to be debrided in OR reports Dr. Boo. Will follow along peripherally and assist as needed.
[2025-06-09] MEDS: ZOSYN IV (15:40)
[2025-06-09 15:58] LABS: B.E. - POC -2.8 mmol/L; Glucose - POC 90 mg/dl (70-99); HCO3 - POC 24 mmol/L (21-28); Hematocrit - POC 35 % PCV (42-52); Hemodilution- POC Yes; Hemoglobin Calculated - POC 12.0; Ionized Calcium - POC 1.37 mmol/L (1.15-1.33); Lactate - POC 1.08 mmol/L (0.36-0.75); O2 Saturation %Calculated-POC 99.8 % (94-98); PCO2 - POC 47 mmHg (35-48); PO2 - POC 258 mmHg (83-108); Potassium - POC 3.2 mmol/L (3.5-5.1); Sodium - POC 141 mmol/L (136-145); Specimen Type - POC Arterial; pH - POC 7.31 (7.35-7.45)
--- NOTE | 2025-06-09 17:36 | W.IMMPOSTOP ---
Surgical Immed Post Op Note
-
Primary Surgeon: Rajeev
Assisting Surgeon: None
Pre-op Diagnosis: Sacral decubitus ulcer
Post-op Diagnosis: Sacral decubitus ulcer
Procedure Performed: Laparoscopic assisted diverting loop sigmoid colostomy and debridement of sacral decubitus ulcer in preparation for possible soft tissue flap
Anesthesia Type: General
Specimen / Cultures: None
Estimated Blood Loss: 11 cc
Complications: None
Operative Findings:
1. Sigmoid adhesions from prior likely prior diverticulitis mobilized, descending colon mobilized
2. Loop sigmoid colostomy matured, Ning, ostomy bridge (proximal cranial, distal caudal)
3. Excisional debridement using scissors and electrocautery, no purulence, necrotic skin and fat, healthy muscle, no exposed bone
4. Wound measurements 10 x 6 x 2 cm
--- NOTE | 2025-06-09 17:57 | SUR.PHASEI ---
Rec'd sleepy in bed with HOB elevated low fowlers, oriented x 3 by RN reassured,positioned for comfort, denies c/o, novak to bsd cl yellow urine
--- NOTE | 2025-06-09 18:05 | SUR.PHASEI ---
L radial a line with good wave form correlates with cuff, arouses easily, denies c/o
--- NOTE | 2025-06-09 18:22 | SUR.PHASEI ---
Alert, oral care given dyana well, rubin d/c intact, dyana well, pressure held x 15 min
--- NOTE | 2025-06-09 18:35 | PTCARENOTE ---
pt returned from OR awake and alert, denies pain. 3 L via NC lung sounds diminished b/l, shallow. 4 surgical sites across abd approximated with glue. new stoma pink budded. BP soft 96/57 MAP 70 normosol finishing from PACU
[2025-06-09] MEDS: LIPITOR 40 MG PO (21:26)
[2025-06-09] MEDS: LIPITOR PO (21:26)
[2025-06-10] MEDS: TYLENOL PO ×2 (00:48→03:48)
[2025-06-10] MEDS: ZOSYN 50 IV ×4 (02:42→21:52)
[2025-06-10 03:00] VITALS: BP 105/58
[2025-06-10 06:16] LABS: Hematocrit 29.2 % (39.0-52.0); Hemoglobin 8.6 g/dL (13.0-18.0); Mean Corp Hgb Conc. 29.5 g/dL (33.0-37.0); Mean Corpuscular Volume 75.8 fL (80.0-94.0); Nucleated Red Blood Cells % 0 % (-); Platelet Count 232 10^3/uL (130-400); Red Cell Dist. Width 19.7 % (11.5-14.5)
[2025-06-10 06:24] LABS: ALT (SGPT) 29 U/L (0-50); AST (SGOT) 22 U/L (17-59); Albumin 2.3 g/dl (3.5-5.0); Alkaline Phosphatase 101 U/L (38-126); Blood Urea Nitrogen 21 mg/dl (9-20); Calcium 8.4 mg/dl (8.4-10.2); Carbon Dioxide 24 mmol/L (22-30); Chloride 109 mmol/L (98-107); Estimated Creatinine Clearance 56 ml/min; Glucose 98 mg/dl (70-99); Potassium 4.0 mmol/L (3.5-5.1); Sodium 140 mmol/L (135-145); Total Protein 5.0 g/dl (6.3-8.2); eGFR > 60.00
[2025-06-10 07:00] VITALS: BP 110/59
[2025-06-10] MEDS: SPIRIVA RESPIMAT 2.5 MCG 2 PUFF INH (07:20)
[2025-06-10] MEDS: ADVAIR HFA 115/21 MCG INHALER 2 PUFF INH ×2 (07:21→19:50)
[2025-06-10] MEDS: TYLENOL 650 MG PO ×4 (08:25→21:51)
[2025-06-10] MEDS: NORVASC 5 MG PO (08:27)
[2025-06-10] MEDS: LOW STRENGTH ASPIRIN 81 MG PO (08:27)
[2025-06-10] MEDS: SANTYL OINTMENT 1 APPLIC TOPICAL (08:30)
[2025-06-10] MEDS: D5/0.45%NSS with KCL 20 MEQ 1000 IV (08:31)
--- NOTE | 2025-06-10 09:48 | W.PN.GS2 ---
Today's Communication / Plan
-
-- Sips of clears
-- mIVF ordered
-- Wound and ostomy consult: new colostomy and local wound care to sacral wound
-- EKG ordered, may need tele
Assessment / Plan
-
Patient is an 84 yo M p/w failure to thrive at home, found to have a unstageable sacral decubitus ulcer
POD#1 s/p laparoscopic assisted diverting loop colostomy and debridement of sacral wound
AVSS
Labs notable for decrease WBC, decrease HB 10 --> 8 likely hydration, stable electrolytes and renal function
Recovering well from a surgical standpoint. Awaiting consistent ostomy output and return of bowel function prior to dietary advancement. Sips of clears for comfort. Maintenance IV fluids ordered, defer to hospitalist on volume given his
underlying lung issues. Intermittent issues with tachycardia both preoperatively and operatively. EKG ordered. Defer to hospitalist on further workup and management. Continue with local wound care.
-- Sips of clears
-- mIVF ordered
-- Wound and ostomy consult: new colostomy and local wound care to sacral wound
-- Pain control: Tylenol
-- EKG ordered, may need tele
-- DVT: Lovenox
Subjective Data
-
Date of Service: June 10, 2025
No complaints. Pain well-controlled. Denies nausea or vomiting. Afebrile.
Objective Data
-
Intake and Output
06/09/25 06/10/25 06/11/25
06:59 06:59 06:59
Intake Total 480 / 480 50 / 50
Output Total 425 / 425
Balance 480 / 480 -375 / -375
Intake:
Oral fluids 480 / 480
IV fluids (Total) 50 / 50
normsol 50 / 50
Output:
Urine, Novak 425 / 425
Other:
How many times incontinent 2
MODERATE amount urine
How many times incontinent 1
SATURATED amount urine
Vital Signs
Temp Pulse Resp BP Pulse Ox
98.2 F 96 18 118/56 94
06/10/25 07:00 06/10/25 08:27 06/10/25 07:22 06/10/25 08:27 06/10/25 07:22
Lab Results
06/10/25 05:35
06/10/25 05:35
Calcium 8.4 mg/dl (8.4-10.2) 06/10/25 05:35
Total Bilirubin 0.4 mg/dl (0.2-1.3) 06/10/25 05:35
AST 22 U/L (17-59) 06/10/25 05:35
ALT 29 U/L (0-50) 06/10/25 05:35
Alkaline Phosphatase 101 U/L (38-126) 06/10/25 05:35
Total Protein 5.0 g/dl (6.3-8.2) L 06/10/25 05:35
Albumin 2.3 g/dl (3.5-5.0) L 06/10/25 05:35
Physical Exam
-
Gen; NAD
Abd: soft, NT/ND, non-peritoneal, ostomy PPV - edematous, bridge in place, small amounts of thin brown output, no flatus
Patient has a novak catheter: Yes
Patient has a central line: No
--- NOTE | 2025-06-10 11:11 | W.PN.HOSP.TC ---
Today's Communication/Plan
-
Continue current care
Assessment / Plan
Assessment / Plan
General: No Apparent Distress, Comfortable and Conversant
HEENT: NormoCephalic, Moist mucous membranes, Atraumatic
Respiratory: Mild bilateral rhonchi
Cardiac: S1/S2 and Regular Rhythm; No Rub or Gallop
GI: Soft, Non Tender, Non Distended, dressing intact
Musculoskeletal: No Edema, no deformity
Skin: Warm and dry, sacral ulcer
: NO Siddiqui
Neuro: Awake, Alert, no tremor
Psych: Calm and cooperative
Sepsis due to infected sacral wound -sepsis present on admission.
- No evidence of osteomyelitis or abscess on CT without contrast.
Currently on IV Zosyn
- Local wound care, wound care team consulted
Underwent laparoscopic assisted diverting loop sigmoid colostomy, debridement of sacral decubitus ulcer, 06/09.
Sips of clears per general surgery. Awaiting return of bowel function.
Sacral decubital wound -underwent debridement of wound 06/09 in the OR. Healthy appearing fat and muscle noted.
Multiple decubital wounds -noted on left lateral ankle, left heel, right lateral heel, right medial heel, sacrum. Wound care consulted.
Microcytic anemia -unknown acuity. Hemoglobin down from 10.4 yesterday to 8.6 today, suspect hemodilution from IV fluids.
No evidence of iron deficiency. B12 and folic acid levels normal. 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
COPD without exacerbation -on Anoro inhaler at home. Will use Spiriva, Advair in the hospital. Albuterol nebs as needed. Incentive spirometry.
Paraplegia -after spinal debulking surgery for acute cord compression at [facility].
Essential hypertension -stable.
Hyperlipidemia -atorvastatin.
Depression
DVT prophylaxis: SCDs ordered.
Full code
Dispo -anticipate fdc placement on discharge. Patient states that family can no longer care for him.
Anticipated Discharge: > 48 hours
Subjective/Interval History
-
Date of Service: June 10, 2025
Patient seen and examined, denies pain or nausea. Complaining of dry mouth.
Objective Data
-
Labs:
Laboratory Results
06/10/25
05:35
WBC 11.8 H
Hgb 8.6 L
Hct 29.2 L
Plt Count 232
Sodium 140
Potassium 4.0
Chloride 109 H
Carbon Dioxide 24
BUN 21 H
Creatinine 0.9
Glucose 98
Calcium 8.4
Total Bilirubin 0.4
AST 22
ALT 29
Alkaline Phosphatase 101
Vital Signs:
Vital Signs
Temp Pulse Resp BP Pulse Ox
98.2 F 96 18 118/56 94
06/10/25 07:00 06/10/25 08:27 06/10/25 07:22 06/10/25 08:27 06/10/25 07:22
I&O
06/09/25 06/10/25 06/11/25
06:59 06:59 06:59
Intake Total 480 / 480 50 / 50
Output Total 425 / 425
Balance 480 / 480 -375 / -375
Review of Systems
-
History Source: Patient
All other systems: Reviewed and negative
--- NOTE | 2025-06-10 11:13 | CM ---
CM following for discharge planning needs. Family has been in touch with [facility] for [facility] living care.
Pt underwent laparoscopic assisted diverting loop sigmoid colostomy and debridement of sacral decubitus ulcer. [facility] is following for admission when medically stable; financial information had been provided previously per Marvel's daughter.
Discharge not anticipated in the next several days.
--- NOTE | 2025-06-10 11:41 | W.PN.ID1 ---
Date of Service
Date of Service: June 10, 2025
Today's Communication
- continue zosyn for 3 days post operatively
Assessment / Plan
Sacral decubitus wound s/p debridement, without exposed bone
Paraplegia
Stage IV lung cancer with bone mets
- s/p debridement with surgery, no exposed bone, also ostomy placed
- continue zosyn for 3 days post operatively
- offloading of the wound as feasible
Chief Complaint
-: Other (sacral decubitus ulcer)
Subjective / Review of Systems
afebrile
bp stable
Vital Signs / Physical Exam
Vital Signs
Vital Signs
Temp Pulse Resp BP Pulse Ox
98.2 F 96 18 118/56 94
06/10/25 07:00 06/10/25 08:27 06/10/25 07:22 06/10/25 08:27 06/10/25 07:22
Physical Exam
Constitutional: No Acute Distress
Cardiovascular: Regular Rate and S1/S2; Negative Murmur or Rub
Pulmonary: Clear and Symmetric; Negative Wheezes or Rales
Gastrointestinal: Soft, Non Tender, Non Distended and Normal Bowel Sounds
Skin: Warm and Dry; Negative Rash or Jaundice
Objective Data
Lab Data
Lab Results
06/10/25 05:35
06/10/25 05:35
ESR 105 mm/hour (0-20) H 06/08/25 11:22
Estimated Creat Clear 56 ml/min 06/10/25 05:35
Total Bilirubin 0.4 mg/dl (0.2-1.3) 06/10/25 05:35
AST 22 U/L (17-59) 06/10/25 05:35
ALT 29 U/L (0-50) 06/10/25 05:35
Alkaline Phosphatase 101 U/L (38-126) 06/10/25 05:35
C-Reactive Protein 167.10 mg/L (0.0-10.00) H 06/08/25 11:22
Most recent labs reviewed.
Micro Results:
06/06/25 23:48 MRSA Screen - Final
Nose No Methicillin Resistant Staphylococcus aureus isolated.
[2025-06-10 12:00] VITALS: BP 120/56
--- NOTE | 2025-06-10 14:34 | WOUNDNOTE ---
WOC RN note: Patient's sacral wound packing changed. 2 areas of sanguinous ooze noted. Pressure applied then packed with saline moistened Kerlix packing. Wound clean with some yellow tissue. Periwound skin purple along proximal edge. Patient turned
to R semi side lying position with help from TRICIA Obrien. TruVue lite boots in place. Patient on a [facility] air bed. Reviewed pouch emptying and changing with patient and family. Colotomy appliance intact. Small liquid brown effluent in pouch.
Stoma pale pink and budded. Stoma bridge in place. Ostomy supplies (Pilar wafer #[id number], Prakash seals, [place] pouch #[id number]) and colostomy teaching folder given. [place] texted WIL Griggs re: recommend an air mattress at [facility]; patient has a
stage 4 sacral pressure injury.
--- NOTE | 2025-06-10 14:35 | WOUNDNOTE ---
WO RN note: Patient's sacral wound packing changed. 2 areas of sanguinous ooze noted. Pressure applied then packed with saline moistened Kerlix packing. Updated Dr. Boo and ESTEBAN Feliciano. Dr. Boo approved daily sacral wound care for nursing
(sacral wound care done for today). Instructed ESTEBAN Feliciano to contact general surgeon economist research assistant if sacral wound sanguinous oozing reoccurs. Wound clean with some yellow tissue. Periwound skin purple along proximal edge. Patient turned to R semi side
lying position with help from PCT Camille. Xbio Systemse boots in place. Patient on a [facility] air bed. Reviewed pouch emptying and changing with patient and family. Colotomy appliance intact. Small liquid brown effluent in pouch. Stoma pale pink
and budded. Stoma bridge in place. Ostomy supplies (Pilar wafer #[id number], Prakash seals, Pilar pouch #[id number]) and colostomy teaching folder given. [place] texted WIL Griggs re: recommend an air mattress at SNF; patient has a stage 4 sacral
pressure injury.
[2025-06-10 15:00] VITALS: BP 114/53
[2025-06-10] MEDS: LOVENOX 40 MG SC (18:48)
[2025-06-10 19:20] VITALS: BP 110/51
--- NOTE | 2025-06-10 22:44 | PTCARENOTE ---
Pt had colostomy placement and sacral debridement 06/09 and Novak placed at that time. no order placed to remove. BUILDING MAINTENANCE REPAIRER notified, order placed. Novak was to be removed this morning at 0600. Novak removed and pt due to void by 0437 06/11. 200mls of
yellow urine in novak bag. Plan of care ongoing.
[2025-06-10 23:10] VITALS: BP 97/48
[2025-06-11] VITALS (7 sets, daily range): BP systolic 92–149; BP diastolic 51–88; BMI 24.2
[2025-06-11] MEDS: TYLENOL PO ×2 (01:26→05:03)
[2025-06-11] MEDS: D5/0.45%NSS with KCL 20 MEQ 1000 IV ×2 (03:18→09:44)
[2025-06-11] MEDS: ZOSYN 50 IV (03:24)
--- NOTE | 2025-06-11 05:29 | W.PN.UPDATE ---
Update Note
Progress Note Update
Asked to eval pt for RUE edema. Also had 43 Beat what appears to be VT. PT asymptomatic.
RUE with +2 edema. IVF running through R cephalic. Per RN arm was evaled by VAT team for edema from RAC infiltrate. That iv site was removed. But IVF running through R cephalic. Asked RN to DC iv in RUE. Will need placement in LUE. If not
accessible will need picc or midline. PT is NPO until return of bowel function. Pt denies pain. Arm elevated on pillow.
Will check mag and K. Per noted from OR pt had episodes in OR of tachycardia and Afib was listed as well. By end of case pt was back to NSR. Episode lasted about 2 hrs. NO hx of afib previously.
Per nurse pt seems overall more 'puffy' in face and upper extremities. Denies sOB. Did receive apporx 1500ml IVF in OR. Need to watch volume status closely. BPs are soft but stable. check cxr in am
--- NOTE | 2025-06-11 05:35 | PTCARENOTE ---
VAT RN notified at beginning of shift of possible infiltration with RAC IV, R arm elevated. VAT RN stated okay to use R wrist IV for fluids since LAC IV needed to be removed as well. Pt now w/ +1-2 edema in R arm, PLATE CONDITIONER up to floor to assess. VAT RN
notified about edema and instructed RN to place warm packs to b/l arms. IV moved from RAC to LW.
Tele monitor alarmed 43 beats of Vtach, pt asymptomatic and VSS. PLATE CONDITIONER notified, instructed to obtain morning labs and stat mag added. VAT RN obtained morning labs with IV placement. Plan of care ongoing.
[2025-06-11 06:07] LABS: Hematocrit 30.4 % (39.0-52.0); Hemoglobin 9.1 g/dL (13.0-18.0); Mean Corp Hgb Conc. 29.9 g/dL (33.0-37.0); Mean Corpuscular Volume 77.0 fL (80.0-94.0); Nucleated Red Blood Cells % 0 % (-); Platelet Count 246 10^3/uL (130-400); Red Cell Dist. Width 19.7 % (11.5-14.5)
[2025-06-11] MEDS: ADVAIR HFA 115/21 MCG INHALER 2 PUFF INH ×2 (06:23→19:24)
[2025-06-11] MEDS: SPIRIVA RESPIMAT 2.5 MCG 2 PUFF INH (06:24)
--- NOTE | 2025-06-11 06:52 | W.PN.GS2 ---
Today's Communication / Plan
-
-- Clears
Assessment / Plan
-
Patient is an 84 yo M p/w failure to thrive at home, found to have a unstageable sacral decubitus ulcer
POD#2 s/p laparoscopic assisted diverting loop colostomy and debridement of sacral wound
AVSS
Labs notable for decrease WBC, stable HB, BMP pending
Recovering well from a surgical standpoint. Trial of clears today
-- Clears
-- mIVF, can DC when tolerating PO
-- Wound and ostomy consult: new colostomy and local wound care to sacral wound
-- Pain control: Tylenol
-- DVT: Lovenox
Subjective Data
-
Date of Service: June 11, 2025
No complaints.
Objective Data
-
Intake and Output
06/09/25 06/10/25 06/11/25
06:59 06:59 06:59
Intake Total 480 / 480 50 / 50 50 / 50
Output Total 425 / 425 450 / 450
Balance 480 / 480 -375 / -375 -400 / -400
Intake:
Oral fluids 480 / 480 50 / 50
IV fluids (Total) 50 / 50
normsol 50 / 50
Output:
Urine, Novak 425 / 425 450 / 450
Other:
How many times incontinent 2
MODERATE amount urine
How many times incontinent 1
SATURATED amount urine
Vital Signs
Temp Pulse Resp BP Pulse Ox
97.7 F 97 16 92/55 95
06/11/25 04:56 06/11/25 06:25 06/11/25 06:25 06/11/25 04:56 06/11/25 06:25
Lab Results
06/11/25 05:44
Calcium Cancelled 06/11/25 05:43
Magnesium Cancelled 06/11/25 05:44
Total Bilirubin 0.4 mg/dl (0.2-1.3) 06/10/25 05:35
AST 22 U/L (17-59) 06/10/25 05:35
ALT 29 U/L (0-50) 06/10/25 05:35
Alkaline Phosphatase 101 U/L (38-126) 06/10/25 05:35
Total Protein 5.0 g/dl (6.3-8.2) L 06/10/25 05:35
Albumin 2.3 g/dl (3.5-5.0) L 06/10/25 05:35
Physical Exam
-
Gen: NAD
Abd: soft, NT/ND, non-peritoneal, ostomy PPV - edematous, bridge in place, air and thin liquid stool in appliance
Patient has a novak catheter: Yes
Patient has a central line: No
[2025-06-11 08:31] LABS: Blood Urea Nitrogen 20 mg/dl (9-20); Calcium 9.2 mg/dl (8.4-10.2); Carbon Dioxide 28 mmol/L (22-30); Chloride 111 mmol/L (98-107); Estimated Creatinine Clearance 63 ml/min; Glucose 105 mg/dl (70-99); Magnesium 2.3 mg/dl (1.6-2.3); Potassium 4.0 mmol/L (3.5-5.1); Sodium 140 mmol/L (135-145); eGFR > 60.00
--- NOTE | 2025-06-11 09:06 | W.PN.ID1 ---
Date of Service
Date of Service: June 11, 2025
Today's Communication
- can transition to augmentin, to continue for 3 days post operatively - 2 further days
- offloading of the wound as feasible
Assessment / Plan
Sacral decubitus wound s/p debridement, without exposed bone
Paraplegia
Stage IV lung cancer with bone mets
- s/p debridement with surgery, no exposed bone, also ostomy placed
- can transition to augmentin, to continue for 3 days post operatively - 2 further days
- offloading of the wound as feasible
Chief Complaint
-: Other (sacral decubitus ulcer)
Subjective / Review of Systems
afebrile
bp stable
diet being advanced
Vital Signs / Physical Exam
Vital Signs
Vital Signs
Temp Pulse Resp BP Pulse Ox
97.9 F 106 16 112/59 88
06/11/25 08:12 06/11/25 08:12 06/11/25 08:12 06/11/25 08:12 06/11/25 08:12
Physical Exam
Constitutional: No Acute Distress
Cardiovascular: Regular Rate and S1/S2; Negative Murmur or Rub
Pulmonary: Clear and Symmetric; Negative Wheezes or Rales
Gastrointestinal: Soft, Non Tender, Non Distended and Normal Bowel Sounds
Skin: Warm, Dry and Other (stoma pink liquid stool in the bag); Negative Rash or Jaundice
Objective Data
Lab Data
Lab Results
06/11/25 05:44
06/11/25 07:41
ESR 105 mm/hour (0-20) H 06/08/25 11:22
Estimated Creat Clear 63 ml/min 06/11/25 07:41
Total Bilirubin 0.4 mg/dl (0.2-1.3) 06/10/25 05:35
AST 22 U/L (17-59) 06/10/25 05:35
ALT 29 U/L (0-50) 06/10/25 05:35
Alkaline Phosphatase 101 U/L (38-126) 06/10/25 05:35
C-Reactive Protein 167.10 mg/L (0.0-10.00) H 06/08/25 11:22
Most recent labs reviewed.
Micro Results:
06/06/25 23:48 MRSA Screen - Final
Nose No Methicillin Resistant Staphylococcus aureus isolated.
[2025-06-11] MEDS: AUGMENTIN 875 MG/125 MG 1 TABLET PO ×2 (09:27→20:33)
[2025-06-11] MEDS: NORVASC 5 MG PO (09:27)
[2025-06-11 09:28] LABS: TSH 2.62 uIU/ml (0.47-4.68)
[2025-06-11] MEDS: LOW STRENGTH ASPIRIN 81 MG PO (09:28)
[2025-06-11] MEDS: TYLENOL 650 MG PO (09:29)
[2025-06-11] MEDS: ZOSYN IV (09:57)
--- NOTE | 2025-06-11 11:09 | W.PN.HOSP.TC ---
Today's Communication/Plan
-
Cardiology consult
Monitor on telemetry
Assessment / Plan
Assessment / Plan
General: No Apparent Distress, Comfortable and Conversant
HEENT: NormoCephalic, Moist mucous membranes, Atraumatic
Respiratory: Mild bilateral rhonchi
Cardiac: S1/S2 and Regular Rhythm; No Rub or Gallop
GI: Soft, Non Tender, Non Distended, dressing intact
Musculoskeletal: No Edema, no deformity
Skin: Warm and dry, sacral ulcer
: NO Siddiqui
Neuro: Awake, Alert, no tremor
Psych: Calm and cooperative
Acute hypoxic respiratory failure -present on admission. Requiring 3 to 4 L nasal cannula oxygen.
One-view Chest x-ray done last night shows right pleural effusion with mild compressive atelectasis.
Patient states he does not use oxygen at home.
Offered him diagnostic and therapeutic right thoracentesis but he would like to hold off for now. His main focus is to get a good night sleep.
Pleural effusion remains undiagnosed but malignancy, given underlying lung cancer, remains on the differential diagnosis. Doubt infection.
Sepsis due to infected sacral wound -sepsis present on admission.
- No evidence of osteomyelitis or abscess on CT without contrast.
Underwent laparoscopic assisted diverting loop sigmoid colostomy, debridement of sacral decubitus ulcer, 06/09.
Last recorded bowel movement 06/09 afternoon.
Clear liquid diet per general surgery.
Intraoperative atrial fibrillation -noted in the anesthesia records. No known history of A-fib. Cardiology consulted.
TSH 2.62. Currently sinus rhythm.
Sacral decubital wound -underwent debridement of wound 06/09 in the OR. Healthy appearing fat and muscle noted. Osteomyelitis felt to be less likely. Now on Augmentin as per ID.
Multiple decubital wounds -noted on left lateral ankle, left heel, right lateral heel, right medial heel, sacrum. Wound care consulted.
Microcytic anemia -unknown acuity. Hemoglobin stable, 9.1.
No evidence of iron deficiency. B12 and folic acid levels normal. 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 He received spinal radiation treatments. Cancer was diagnosed at [facility], patient states this year.
COPD without exacerbation -on Anoro inhaler at home. Will use Spiriva, Advair in the hospital. Albuterol nebs as needed. Incentive spirometry.
Paraplegia -after spinal debulking surgery for acute cord compression at [facility].
Essential hypertension -stable.
Hyperlipidemia -atorvastatin.
Depression
DVT prophylaxis: SCDs ordered.
Full code
Dispo -anticipate longterm placement on discharge. Patient states that family can no longer care for him.
Anticipated Discharge: > 48 hours
Subjective/Interval History
-
Date of Service: June 11, 2025
Patient seen and examined, no shortness of breath. Does have a cough.
Objective Data
-
Labs:
Laboratory Results
06/11/25 06/11/25 06/11/25
05:43 05:44 07:41
WBC 11.6 H
Hgb 9.1 L
Hct 30.4 L
Plt Count 246
Sodium Cancelled 140
Potassium Cancelled 4.0
Chloride Cancelled 111 H
Carbon Dioxide Cancelled 28
BUN Cancelled 20
Creatinine Cancelled 0.8
Glucose Cancelled 105 H
Calcium Cancelled 9.2
Vital Signs:
Vital Signs
Temp Pulse Resp BP Pulse Ox
97.9 F 106 16 112/59 88
06/11/25 08:12 06/11/25 08:12 06/11/25 08:12 06/11/25 08:12 06/11/25 08:12
I&O
06/10/25 06/11/25 06/12/25
06:59 06:59 06:59
Intake Total 50 / 50 50 / 50
Output Total 425 / 425 450 / 450
Balance -375 / -375 -400 / -400
Review of Systems
-
History Source: Patient
All other systems: Reviewed and negative
--- NOTE | 2025-06-11 12:17 | CM ---
Addendum entered by Tran Griggs 06/11/25 14:57:
CM notified by [facility] that they will not be able to admit Marvel prior to Sunday. CM will follow up on Sunday to coordinate transfer pending final acceptance.
Original Note:
CM following for discharge to SNF. [facility] is following; Carolyn Sy is meeting with her administration to determine if they are able to provide the level of care that he needs, specifically related to wound care.
Plan: Await updates from [facility] regarding ability to admit.
[2025-06-11] MEDS: DECADRON 4 MG PO ×2 (13:20→20:34)
--- NOTE | 2025-06-11 14:36 | CON.CAR ---
Addendum entered and electronically signed by Phan Lyle MD 06/11/25 15:23:
I saw and examined the patient.
The WRITING TUTOR or PA's note was reviewed and I agree with the note.
Comment: General: Well developed, well nourished in NAD.
Neck: Supple, no JVD, HJR, carotids +2 B/L, no bruits bilaterally.
Heart: Non displaced PMI, RRR, no murmurs, No S3, S4, no rubs.
Lungs: Scattered rhonchi
Extremities: No clubbing, cyanosis or edema bilaterally.
Neuro: Grossly nonfocal, awake, alert and oriented x3.
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 Patient was in the OR and had sacral debridement and
colostomy for incontinence. By report he was noted to have A-fib in the operating room. Also of note on telemetry patient had episodes of nonsustained V. tach.
He was asymptomatic with nonsustained V. tach. Will treat conservatively given comorbidities and paraplegia. Will add Toprol XL. Will check echocardiogram. Regarding A-fib will continue telemetry and if recurrence may consider anticoagulation.
Original Note:
Consultation
Consultation Request
Date/Time Consultation Requested: 06/11/2025
Date/Time Consultation Performed: 06/11/2025
Requesting Provider: Dr. Jensen
Performing Provider: Dr. Lyle
Reason for Consultation: Abnormal telemetry
Medical History
-
History of Present Illness:
Patient came to the ER with nonhealing sacral wound and was admitted, cardiology now consulted for possible A-fib and NSVT. Patient has primarily received his medical care at [facility], but came to [facility] ER on 05/29/2025 after he fell from a wheelchair and
landed on his bottom and family noticed bruising and sent him to the ER the day after the fall. Patient was offered admission and then rehab, but family declined so the patient could return home and finish radiation therapy. Patient returned to
the ER 06/06/2025 with worsening of his sacral wound and family was also worried that wounds on his heels B/L were getting worse and they were agreeable to admission. Patient was hypotensive on admission and was treated as sepsis related to an
infected sacral wound. Patient was seen in consultation by general surgery who recommended a colostomy to help with incontinence and also wound debridement, these procedures were performed on 06/09/2025. I reviewed the note from the anesthesia
team who reported that patient had atrial fibrillation during surgery, there is no known history of atrial fibrillation. Patient then had an urgent bedside evaluation by house WRITING TUTOR early this morning after he had 43 beats of NSVT and on the house WRITING TUTOR
review of OR documentation there was the report of tachycardia and A-fib and cardiology was consulted. No evidence of A-fib on telemetry, but patient definitely had VT. Appears he was asymptomatic with this. No previous echo. Potassium 4.0 and
magnesium 2.3. Patient is a full code. He has a history of bladder and renal carcinoma with previous right nephrectomy, but Cre normal at 0.8. 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
debulking surgery at [facility] to left him a paraplegic. Most recently he had radiation therapy.
PMH:
Nonhealing wounds on the sacrum and B/L LE
s/p debridement of sacral decubitus ulcer 06/09/2025
s/p colostomy for incontinence 06/09/2025
Paraplegia following spine surgery at [facility]
Stage IV lung cancer with spinal metastasis
Spine debulking surgery at [facility] and radiation therapy within the last month
HTN
Hyperlipidemia
h/o bladder and renal carcinoma, s/p right nephrectomy
Past Medical History
Past Medical History: Other (In HPI)
Past Surgical History: Cholecystectomy, Orthopedic and Urological (Right nephrectomy for cancer)
Social History
Tobacco: Former Smoker
Alcohol: None
Drug: None
Personal:
Living: With Family
Family History
Family History: Reviewed & Not Pertinent
Allergies / Home Medications
Allergy/AdvReac Type Severity Reaction Status Date / Time
Iodinated Contrast Media Allergy facial Verified 06/06/25 11:54
swelling
procaine (From Novocain) Allergy syncope Verified 06/06/25 11:54
shellfish derived Allergy Swelling Verified 06/06/25 11:54
�Medication �Instructions �Recorded �Confirmed �Type
aspirin 81 mg chewable tablet 81 mg PO DAILY Blood clot 07/22/21 06/06/25 History
prevention/tx
atorvastatin 40 mg tablet 40 mg PO QPM High cholesterol 07/22/21 06/06/25 History
cholestyramine (with sugar) 4 gram 4 gm PO Q48H High cholesterol 07/22/21 06/06/25 History
powder for susp in a packet
vitamins A,C,J-evlm-dlulvq 4,296 1 cap PO DAILY Supplement 07/22/21 06/06/25 History
mcg-226 mg-90 mg capsule
(PreserVision AREDS)
acetaminophen 325 mg tablet 650 mg PO Q6HPRN PRN mild pain 06/06/25 06/06/25 History
(Tylenol)
albuterol sulfate 90 mcg/actuation 2 puff inhalation R Q6HPRN PRN sob 06/06/25 06/06/25 History
aerosol inhaler
dexamethasone 2 mg tablet 4 mg PO BID Anti-Inflammatory 06/06/25 06/06/25 History
docusate sodium 100 mg capsule 100 mg PO DAILYPRN PRN constipation 06/06/25 06/06/25 History
(Colace)
enoxaparin 40 mg/0.4 mL 40 mg SC QPM Blood Clot 06/06/25 06/06/25 History
subcutaneous syringe (Lovenox) Prevention/Tx
ferrous sulfate 325 mg (65 mg 325 mg PO DAILY Supplement 06/06/25 06/06/25 History
iron) tablet
pantoprazole 40 mg tablet,delayed 40 mg PO DAILY Gastrointestinal 06/06/25 06/06/25 History
release (Protonix) Issue
polyethylene glycol 3350 17 gram 17 g PO DAILY Constipation 06/06/25 06/06/25 History
oral powder packet (Miralax)
tamsulosin 0.4 mg capsule (Flomax) 0.4 mg PO DAILY Urinary Issue 06/06/25 06/06/25 History
umeclidinium 62.5 mcg-vilanterol 1 inh inhalation R DAILYPRN PRN sob 06/06/25 06/06/25 History
25 mcg/actuation powdr for
inhalation (Anoro Ellipta)
Review of Systems
-
History Source: Patient and Transfer Record
All other systems: Negative unless noted
Physical Exam
Vital Signs
Temp Pulse Resp BP Pulse Ox
98.4 F 108 17 100/51 96
06/11/25 11:27 06/11/25 11:27 06/11/25 11:27 06/11/25 11:27 06/11/25 11:27
GEN: NAD
HEENT: MMM
LUNGS: 4 L NC. Poor inspiratory effort. Rhonchi without wheeze
CV: SR with PVCs. Reg with ectopy, no murmur
ABD: s/p colostomy, ND
EXT: No edema B/L LE
NEURO: No lateralizing weakness
SKIN: No rash
Lab Results
06/11/25 05:44
06/11/25 07:41
Impression / Plan
-
PCP: Dr. Juventino Casas
Impression:
Admitted with nonhealing wounds 06/06/2025
Recent ER visit for fall and sacral wound 05/29/2025
Sepsis
Nonhealing wounds on the sacrum and B/L LE
s/p debridement of sacral decubitus ulcer 06/09/2025
s/p colostomy for incontinence 06/09/2025
Paraplegia following spine surgery at [facility]
Acute hypoxic respiratory failure
Right-sided pleural effusion
Stage IV lung cancer with spinal metastasis
Spine debulking surgery at [facility] and radiation therapy within the last month
Possible paroxysmal A-fib
NSVT
43 beat run of NSVT seen on telemetry 06/11/2025 AM
HTN
Hyperlipidemia
h/o bladder and renal carcinoma, s/p right nephrectomy
Echo 06/11/2025: Report pending
Plan:
-Patient came to the ER with nonhealing sacral wound and was admitted, cardiology now consulted for possible A-fib and NSVT. Patient has primarily received his medical care at [facility], but came to [facility] ER on 05/29/2025 after he fell from a wheelchair
and landed on his bottom and family noticed bruising and sent him to the ER the day after the fall. Patient was offered admission and then rehab, but family declined so the patient could return home and finish radiation therapy. Patient returned
to the ER 06/06/2025 with worsening of his sacral wound and family was also worried that wounds on his heels B/L were getting worse and they were agreeable to admission. Patient was hypotensive on admission and was treated as sepsis related to an
infected sacral wound. Patient was seen in consultation by general surgery who recommended a colostomy to help with incontinence and also wound debridement, these procedures were performed on 06/09/2025. I reviewed the note from the anesthesia
team who reported that patient had atrial fibrillation during surgery, there is no known history of atrial fibrillation. Patient then had an urgent bedside evaluation by house WRITING TUTOR early this morning after he had 43 beats of NSVT and on the house WRITING TUTOR
review of OR documentation there was the report of tachycardia and A-fib and cardiology was consulted. No evidence of A-fib on telemetry, but patient definitely had VT. Appears he was asymptomatic with this. No previous echo. Potassium 4.0 and
magnesium 2.3. Patient is a full code. He has a history of bladder and renal carcinoma with previous right nephrectomy, but Cre normal at 0.8. 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
debulking surgery at [facility] to left him a paraplegic. Most recently he had radiation therapy.
-ECG reviewed by me is SR without acute ST changes.
-Telemetry reviewed by me looks like an episode of NSVT early this morning and now occasional to frequent PVCs.
-Electrolytes stable with potassium 4.0 magnesium 2.3.
-Check echo, ordered by me
-Patient was not taking an AV lawson duncan prior to admission. We will add Toprol XL 12.5 mg daily.
-Amlodipine 5 mg daily added on admission because we thought he was taking that as an outpatient, but med list updated since then and it appears he does not actually take amlodipine on daily basis so we will stop Lopressor and if BP improves we will
try to uptitrate Toprol-XL 25 mg daily.
-Not clear that patient is a candidate for ischemic evaluation given significant comorbidities despite the fact that he is a full code.
[2025-06-11] MEDS: TOPROL XL 12.5 MG PO (17:30)
[2025-06-11] MEDS: LIPITOR 40 MG PO (17:30)
[2025-06-11] MEDS: LOVENOX 40 MG SC (17:30)
[2025-06-12 03:00] VITALS: BP 136/81
[2025-06-12 06:00] VITALS: BMI 24.4
[2025-06-12] MEDS: SPIRIVA RESPIMAT 2.5 MCG 2 PUFF INH (06:10)
[2025-06-12] MEDS: ADVAIR HFA 115/21 MCG INHALER 2 PUFF INH ×2 (06:10→18:45)
[2025-06-12 06:26] LABS: Hematocrit 28.9 % (39.0-52.0); Hemoglobin 8.7 g/dL (13.0-18.0); Mean Corp Hgb Conc. 30.1 g/dL (33.0-37.0); Mean Corpuscular Volume 75.5 fL (80.0-94.0); Nucleated Red Blood Cells % 0 % (-); Platelet Count 228 10^3/uL (130-400); Red Cell Dist. Width 19.5 % (11.5-14.5)
[2025-06-12 07:00] VITALS: BP 130/64
[2025-06-12 07:11] LABS: Blood Urea Nitrogen 15 mg/dl (9-20); Calcium 8.8 mg/dl (8.4-10.2); Carbon Dioxide 27 mmol/L (22-30); Chloride 108 mmol/L (98-107); Estimated Creatinine Clearance 63 ml/min; Glucose 132 mg/dl (70-99); Potassium 4.1 mmol/L (3.5-5.1); Sodium 137 mmol/L (135-145); eGFR > 60.00
[2025-06-12] MEDS: TOPROL XL 12.5 MG PO (09:11)
[2025-06-12] MEDS: DECADRON 4 MG PO ×2 (09:11→19:55)
[2025-06-12] MEDS: FLOMAX 0.4 MG PO (09:11)
[2025-06-12] MEDS: AUGMENTIN 875 MG/125 MG 1 TABLET PO ×2 (09:12→19:56)
[2025-06-12] MEDS: LOW STRENGTH ASPIRIN 81 MG PO (09:12)
--- NOTE | 2025-06-12 09:57 | W.PN.GS2 ---
Today's Communication / Plan
-
-- Fulls, possible LRD today versus tomorrow
Assessment / Plan
-
Patient is an 84 yo M p/w failure to thrive at home, found to have a unstageable sacral decubitus ulcer
POD#3 s/p laparoscopic assisted diverting loop colostomy and debridement of sacral wound
AVSS
Labs notable for normal WBC, stable HB, normal
Recovering well from a surgical standpoint. Trial of clears today
-- Fulls, possible LRD today versus tomorrow
-- Pain control: Tylenol
-- Abx: Augmentin, per ID
-- Wound and ostomy consult: new colostomy and local wound care to sacral wound
-- DVT: Lovenox
-- Card consult noted
Subjective Data
-
Date of Service: June 12, 2025
No complaints. Denies nausea or vomiting. Denies increased abdominal distention or pain. No fevers.
Objective Data
-
Intake and Output
06/11/25 06/12/25 06/13/25
06:59 06:59 06:59
Intake Total 50 / 50 410 / 410
Output Total 450 / 450 250 / 250
Balance -400 / -400 160 / 160
Intake:
Oral fluids 50 / 50 410 / 410
Output:
Liquid stool amount 250 / 250
Colostomy 250 / 250
Urine, [place] 450 / 450
Other:
How many times incontinent 1
MODERATE amount urine
How many times incontinent 2
SATURATED amount urine
Vital Signs
Temp Pulse Resp BP Pulse Ox
97.6 F 96 19 130/64 94
06/12/25 07:00 06/12/25 07:00 06/12/25 07:00 06/12/25 07:00 06/12/25 07:00
Lab Results
06/12/25 06:15
06/12/25 06:15
Calcium 8.8 mg/dl (8.4-10.2) 06/12/25 06:15
Magnesium 2.3 mg/dl (1.6-2.3) 06/11/25 07:41
Total Bilirubin 0.4 mg/dl (0.2-1.3) 06/10/25 05:35
AST 22 U/L (17-59) 06/10/25 05:35
ALT 29 U/L (0-50) 06/10/25 05:35
Alkaline Phosphatase 101 U/L (38-126) 06/10/25 05:35
Total Protein 5.0 g/dl (6.3-8.2) L 06/10/25 05:35
Albumin 2.3 g/dl (3.5-5.0) L 06/10/25 05:35
Physical Exam
-
Gen: NAD
Abd: soft, NT/ND, non-peritoneal, incisions c/d/i - no erythema, ecchymosis or drainage, ostomy PPV - thin brown stool and air in appliance
Patient has a novak catheter: No
Patient has a central line: No
--- NOTE | 2025-06-12 10:40 | W.PN.ID1 ---
Date of Service
Date of Service: June 12, 2025
Today's Communication
- continue augmentin - 1 further days
Assessment / Plan
Sacral decubitus wound s/p debridement, without exposed bone
Paraplegia
Stage IV lung cancer with bone mets
- s/p debridement with surgery, no exposed bone, also ostomy placed
- continue augmentin - 1 further days
- offloading of the wound as feasible
Chief Complaint
-: Other (sacral decubitus ulcer)
Subjective / Review of Systems
afebrile
bp stable
tolerating current therapies
Vital Signs / Physical Exam
Vital Signs
Vital Signs
Temp Pulse Resp BP Pulse Ox
97.6 F 96 19 130/64 94
06/12/25 07:00 06/12/25 07:00 06/12/25 07:00 06/12/25 07:00 06/12/25 07:00
Physical Exam
Constitutional: No Acute Distress
Cardiovascular: Regular Rate and S1/S2; Negative Murmur or Rub
Pulmonary: Clear and Symmetric; Negative Wheezes or Rales
Gastrointestinal: Soft, Non Tender, Non Distended and Normal Bowel Sounds
Skin: Warm and Dry; Negative Rash or Jaundice
Objective Data
Lab Data
Lab Results
06/12/25 06:15
06/12/25 06:15
ESR 105 mm/hour (0-20) H 06/08/25 11:22
Estimated Creat Clear 63 ml/min 06/12/25 06:15
Total Bilirubin 0.4 mg/dl (0.2-1.3) 06/10/25 05:35
AST 22 U/L (17-59) 06/10/25 05:35
ALT 29 U/L (0-50) 06/10/25 05:35
Alkaline Phosphatase 101 U/L (38-126) 06/10/25 05:35
C-Reactive Protein 167.10 mg/L (0.0-10.00) H 06/08/25 11:22
Most recent labs reviewed.
Micro Results:
06/06/25 23:48 MRSA Screen - Final
Nose No Methicillin Resistant Staphylococcus aureus isolated.
[2025-06-12 11:00] VITALS: BP 124/65
--- NOTE | 2025-06-12 11:08 | WOUNDNOTE ---
WOC RN NOTE: Patient visited for pouch change. Peristomal skin intact. No drainage noted from old dressing. Pouch emptied for 250 cc liquid stool. Appliance changed with Pilar Barrier [id number] and pouch # [id number]. Patient did not want any ostomy
teaching today. Plan is for SNF at [facility]. WOC RN will sign off and nursing can perform next pouch change on 06/15-06/16.
--- NOTE | 2025-06-12 12:08 | W.PN.CARDCBS ---
Addendum entered and electronically signed by Guillermo Stout MD 06/12/25 14:41:
I saw and examined the patient.
The Bonderizer's note was reviewed and I agree with the note.
Comment:
GEN: No distress, awake, Ox3
HEENT: supple, anicteric, mmm
LUNGS: CTA, no wheezes/rales
CV: Reg, S1/S2, 1/6 syst LSB, no murmur
ABD: soft, BS+, NT/ND
EXT: No edema
NEURO: Gross non-focal
SKIN: dressing intact
Plan:
Telemetry with no further significant events. Only rare PVCs.
Continue metoprolol, aspirin, and atorvastatin.
LVEF overall preserved at 50%.
With his multiple comorbidities including lung cancer/paraplegia would treat him conservatively
Discussed with daughter.
Original Note:
Today's Communication / Plan
-
continue toprol, asa, statin
keep K>4, mag>2
will arrange OP cardiac follow up
Impression / Plan
-
PCP: Dr. Juventino Casas
Impression:
Admitted with nonhealing wounds 06/06/2025
Recent ER visit for fall and sacral wound 05/29/2025
Sepsis
Nonhealing wounds on the sacrum and B/L LE
s/p debridement of sacral decubitus ulcer 06/09/2025
s/p colostomy for incontinence 06/09/2025
Paraplegia following spine surgery at [facility]
Acute hypoxic respiratory failure
Right-sided pleural effusion
Stage IV lung cancer with spinal metastasis
Spine debulking surgery at [facility] and radiation therapy within the last month
Possible paroxysmal A-fib
NSVT
43 beat run of NSVT seen on telemetry 06/11/2025 AM
HTN
Hyperlipidemia
h/o bladder and renal carcinoma, s/p right nephrectomy
Echo 06/11/2025: EF 50%, aortic sclerosis
Plan:
-presented with sepsis s/p laparoscopic assisted diverting loop sigmoid colostomy, debridement of sacral decubitus ulcer 06/09. mgmt per primary service
-had 43 beat run of NSVT on tele 06/11 AM resulting in cards consultation. there was also a question of PAF however none noted on review of tele.
-reports no issues overnight. denies CP, SOB.
-review of tele SR with occasional PVCs and 1 triplet. asymptomatic. K/mag stable
-toprol 12.5mg daily added this admission
-echo with results as above, reviewed with patient 06/12
-patient unlikely a candidate for ischemic evaluation given significant comorbidities including stage 4 lung cancer despite the fact that he is a full code.
-continue asa, statin
-will arrange OP cardiac follow up
-will plan to sign off
PREADMIT DATA:
-Patient came to the ER with nonhealing sacral wound and was admitted, cardiology now consulted for possible A-fib and NSVT. Patient has primarily received his medical care at [facility], but came to [facility] ER on 05/29/2025 after he fell from a wheelchair
and landed on his bottom and family noticed bruising and sent him to the ER the day after the fall. Patient was offered admission and then rehab, but family declined so the patient could return home and finish radiation therapy. Patient returned
to the ER 06/06/2025 with worsening of his sacral wound and family was also worried that wounds on his heels B/L were getting worse and they were agreeable to admission. Patient was hypotensive on admission and was treated as sepsis related to an
infected sacral wound. Patient was seen in consultation by general surgery who recommended a colostomy to help with incontinence and also wound debridement, these procedures were performed on 06/09/2025. I reviewed the note from the anesthesia
team who reported that patient had atrial fibrillation during surgery, there is no known history of atrial fibrillation. Patient then had an urgent bedside evaluation by house APPLIANCE REPAIR TECHNICIAN early this morning after he had 43 beats of NSVT and on the house APPLIANCE REPAIR TECHNICIAN
review of OR documentation there was the report of tachycardia and A-fib and cardiology was consulted. No evidence of A-fib on telemetry, but patient definitely had VT. Appears he was asymptomatic with this. No previous echo. Potassium 4.0 and
magnesium 2.3. Patient is a full code. He has a history of bladder and renal carcinoma with previous right nephrectomy, but Cre normal at 0.8. 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
debulking surgery at [facility] to left him a paraplegic. Most recently he had radiation therapy.
Progress Note - Metal Tube Cutter
Subjective
Date of Service: June 12, 2025
denies CP, SOB, palpitations.
Objective
Labs:
06/12/25 06:15
06/12/25 06:15
Labs
Hgb 8.7 g/dL (13.0-18.0) L 06/12/25 06:15
Hct 28.9 % (39.0-52.0) L 06/12/25 06:15
Plt Count 228 10^3/uL (130-400) 06/12/25 06:15
Sodium 137 mmol/L (135-145) 06/12/25 06:15
Potassium 4.1 mmol/L (3.5-5.1) 06/12/25 06:15
BUN 15 mg/dl (9-20) 06/12/25 06:15
Creatinine 0.8 mg/dL (0.7-1.3) 06/12/25 06:15
Glucose 132 mg/dl (70-99) H 06/12/25 06:15
Vital Signs and I&O:
Vital Signs
Temp Pulse Resp BP Pulse Ox
97.6 F 96 19 130/64 94
06/12/25 07:00 06/12/25 07:00 06/12/25 07:00 06/12/25 07:00 06/12/25 07:00
Vital Signs
Temp Pulse Resp BP Pulse Ox
97.6 F 96 19 130/64 94
06/12/25 07:00 06/12/25 07:00 06/12/25 07:00 06/12/25 07:00 06/12/25 07:00
Intake & Output
06/10/25 06/11/25 06/12/25 06/13/25
07:59 07:59 07:59 07:59
Intake Total 50 / 50 50 / 50 410 / 410
Output Total 425 / 425 450 / 450 250 / 250
Balance -375 / -375 -400 / -400 160 / 160
Physical Exam
Physical Exam
GEN: No distress, awake, alert, oriented x3. on supp O2.
HEENT: supple, anicteric, mmm, eomi
LUNGS: scattered rhonchi which clear with cough, no wheezes
CV: Reg, S1/S2, no murmur
ABD: soft, BS+, NT/ND
EXT: No cyanosis, clubbing, edema
NEURO: Gross non-focal
SKIN: Warm, pink, dry. No rash. Scattered ecchymoses of B/L UE
--- NOTE | 2025-06-12 12:11 | W.PN.HOSP.TC ---
Today's Communication/Plan
-
Continue current care
Assessment / Plan
Assessment / Plan
General: No Apparent Distress, Comfortable and Conversant
HEENT: NormoCephalic, Moist mucous membranes, Atraumatic
Respiratory: Mild bilateral rhonchi
Cardiac: S1/S2 and Regular Rhythm; No Rub or Gallop
GI: Soft, Non Tender, Non Distended, dressing intact
Musculoskeletal: No Edema, no deformity
Skin: Warm and dry, sacral ulcer
: NO Siddiqui
Neuro: Awake, Alert, no tremor
Psych: Calm and cooperative
Acute hypoxic respiratory failure -present on admission. Oxygenation improved, now on 2 L nasal cannula.
One-view Chest x-ray done last night shows right pleural effusion with mild compressive atelectasis.
Patient states he does not use oxygen at home.
Offered him diagnostic and therapeutic right thoracentesis but he would like to hold off for now. Asked the patient again today about thoracentesis but he states he really wants to avoid as he is concerned about complications. We discussed the
risks versus the benefits and he seems to understand but still wants to avoid any further procedures.
Pleural effusion remains undiagnosed but malignancy, given underlying lung cancer, remains on the differential diagnosis. Doubt infection.
Sepsis due to infected sacral wound -sepsis present on admission.
- No evidence of osteomyelitis or abscess on CT without contrast.
Underwent laparoscopic assisted diverting loop sigmoid colostomy, debridement of sacral decubitus ulcer, 06/09.
Last recorded bowel movement 06/09 afternoon.
Advance diet per surgical service. Currently on full liquids.
Intraoperative atrial fibrillation -noted in the anesthesia records. No known history of A-fib. Cardiology consulted.
TSH 2.62. Currently sinus rhythm.
Sacral decubital wound -underwent debridement of wound 06/09 in the OR. Healthy appearing fat and muscle noted. Osteomyelitis felt to be less likely. Now on Augmentin as per ID.
Multiple decubital wounds -noted on left lateral ankle, left heel, right lateral heel, right medial heel, sacrum. Wound care consulted.
Microcytic anemia -unknown acuity. Hemoglobin stable, 8.7.
No evidence of iron deficiency. B12 and folic acid levels normal. 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 He received spinal radiation treatments. Cancer was diagnosed at [facility], patient states this year. Continue Decadron.
COPD without exacerbation -on Anoro inhaler at home. Will use Spiriva, Advair in the hospital. Albuterol nebs as needed. Incentive spirometry.
Paraplegia -after spinal debulking surgery for acute cord compression at [facility].
Essential hypertension -stable.
Hyperlipidemia -atorvastatin.
Depression
DVT prophylaxis: Lovenox.
Full code
Dispo -anticipate custodial placement on discharge. Patient states that family can no longer care for him.
Anticipated Discharge: > 48 hours
Subjective/Interval History
-
Date of Service: June 12, 2025
Patient seen and examined. Feels fine overall. No new complaints.
Objective Data
-
Labs:
Laboratory Results
06/12/25
06:15
WBC 8.6
Hgb 8.7 L
Hct 28.9 L
Plt Count 228
Sodium 137
Potassium 4.1
Chloride 108 H
Carbon Dioxide 27
BUN 15
Creatinine 0.8
Glucose 132 H
Calcium 8.8
Vital Signs:
Vital Signs
Temp Pulse Resp BP Pulse Ox
97.6 F 96 19 130/64 94
06/12/25 07:00 06/12/25 07:00 06/12/25 07:00 06/12/25 07:00 06/12/25 07:00
I&O
06/11/25 06/12/25 06/13/25
06:59 06:59 06:59
Intake Total 50 / 50 410 / 410
Output Total 450 / 450 250 / 250
Balance -400 / -400 160 / 160
Review of Systems
-
History Source: Patient
All other systems: Reviewed and negative
[2025-06-12 15:00] VITALS: BP 122/50
[2025-06-12] MEDS: LIPITOR 40 MG PO ×2 (16:40)
[2025-06-12] MEDS: LOVENOX 40 MG SC (16:40)
[2025-06-12 19:49] VITALS: BP 108/77
[2025-06-12 23:07] VITALS: BP 118/56
[2025-06-13 03:00] VITALS: BP 130/55
[2025-06-13 06:14] LABS: Hematocrit 28.5 % (39.0-52.0); Hemoglobin 8.7 g/dL (13.0-18.0); Mean Corp Hgb Conc. 30.5 g/dL (33.0-37.0); Mean Corpuscular Volume 75.0 fL (80.0-94.0); Nucleated Red Blood Cells % 0 % (-); Platelet Count 234 10^3/uL (130-400); Red Cell Dist. Width 19.7 % (11.5-14.5)
[2025-06-13 06:53] LABS: Blood Urea Nitrogen 22 mg/dl (9-20); Calcium 8.9 mg/dl (8.4-10.2); Carbon Dioxide 25 mmol/L (22-30); Chloride 109 mmol/L (98-107); Estimated Creatinine Clearance 50 ml/min; Glucose 137 mg/dl (70-99); Potassium 4.4 mmol/L (3.5-5.1); Sodium 136 mmol/L (135-145); eGFR > 60.00
[2025-06-13] MEDS: ADVAIR HFA 115/21 MCG INHALER 2 PUFF INH ×2 (07:42→19:16)
[2025-06-13] MEDS: SPIRIVA RESPIMAT 2.5 MCG 2 PUFF INH (07:42)
[2025-06-13 08:03] VITALS: BP 135/66
[2025-06-13] MEDS: TOPROL XL 12.5 MG PO (08:12)
[2025-06-13] MEDS: FLOMAX 0.4 MG PO (08:12)
[2025-06-13] MEDS: AUGMENTIN 875 MG/125 MG 1 TABLET PO (08:12)
[2025-06-13] MEDS: LOW STRENGTH ASPIRIN 81 MG PO (08:12)
[2025-06-13] MEDS: DECADRON 4 MG PO ×2 (08:13→20:02)
--- NOTE | 2025-06-13 10:57 | W.PN.HOSP.TC ---
Today's Communication/Plan
-
Continue current care
Assessment / Plan
Assessment / Plan
General: No Apparent Distress, Comfortable and Conversant
HEENT: NormoCephalic, Moist mucous membranes, Atraumatic
Respiratory: Mild bilateral rhonchi
Cardiac: S1/S2 and Regular Rhythm; No Rub or Gallop
GI: Soft, Non Tender, Non Distended, dressing intact
Musculoskeletal: No Edema, no deformity
Skin: Warm and dry, sacral ulcer
: NO Siddiqui
Neuro: Awake, Alert, no tremor
Psych: Calm and cooperative
Acute hypoxic respiratory failure -present on admission. Oxygenation improved, now on 2 L nasal cannula.
One-view Chest x-ray done last night shows right pleural effusion with mild compressive atelectasis.
Patient states he does not use oxygen at home.
Offered him diagnostic and therapeutic right thoracentesis but he would like to hold off for now. Asked the patient again today about thoracentesis but he states he really wants to avoid as he is concerned about complications. We discussed the
risks versus the benefits and he seems to understand but still wants to avoid any further procedures.
Pleural effusion remains undiagnosed but malignancy, given underlying lung cancer, remains on the differential diagnosis. Doubt infection.
Sepsis due to infected sacral wound -sepsis present on admission.
- No evidence of osteomyelitis or abscess on CT without contrast.
Underwent laparoscopic assisted diverting loop sigmoid colostomy, debridement of sacral decubitus ulcer, 06/09.
Last recorded bowel movement 06/09 afternoon.
Advance diet per surgical service. Currently on full liquids.
Intraoperative atrial fibrillation -noted in the anesthesia records. No known history of A-fib. Cardiology consulted.
TSH 2.62. Currently sinus rhythm.
Sacral decubital wound -underwent debridement of wound 06/09 in the OR. Healthy appearing fat and muscle noted. Osteomyelitis felt to be less likely. Completed a course of antibiotics per ID.
Multiple decubital wounds -noted on left lateral ankle, left heel, right lateral heel, right medial heel, sacrum. Wound care consulted.
Microcytic anemia -unknown acuity. Hemoglobin stable, 8.7.
No evidence of iron deficiency. B12 and folic acid levels normal. 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 He received spinal radiation treatments. Cancer was diagnosed at [facility], patient states this year. Continue Decadron.
COPD without exacerbation -on Anoro inhaler at home. Will use Spiriva, Advair in the hospital. Albuterol nebs as needed. Incentive spirometry.
Paraplegia -after spinal debulking surgery for acute cord compression at [facility].
Essential hypertension -stable.
Hyperlipidemia -atorvastatin.
Depression
DVT prophylaxis: Lovenox.
Full code
Dispo -anticipate penitentiary placement on discharge. Patient states that family can no longer care for him.
Anticipated Discharge: 24 - 48 hours
Subjective/Interval History
-
Date of Service: June 13, 2025
Patient seen and examined. No complaints.
Objective Data
-
Labs:
Laboratory Results
06/13/25
05:56
WBC 8.9
Hgb 8.7 L
Hct 28.5 L
Plt Count 234
Sodium 136
Potassium 4.4
Chloride 109 H
Carbon Dioxide 25
BUN 22 H
Creatinine 1.0
Glucose 137 H
Calcium 8.9
Vital Signs:
Vital Signs
Temp Pulse Resp BP Pulse Ox
98.4 F 80 17 135/66 97
06/13/25 08:03 06/13/25 08:12 06/13/25 08:03 06/13/25 08:12 06/13/25 09:37
I&O
06/12/25 06/13/25 06/14/25
06:59 06:59 06:59
Intake Total 410 / 410 1560 / 1560
Output Total 250 / 250 20 / 20
Balance 160 / 160 1540 / 1540
Review of Systems
-
History Source: Patient
All other systems: Reviewed and negative
[2025-06-13 11:03] VITALS: BP 114/55
--- NOTE | 2025-06-13 13:37 | W.PN.GS2 ---
Today's Communication / Plan
-
Advance diet
Assessment / Plan
-
Patient is an 84 yo M with stage 4 lung ca and paraplegia secondary to spinal mets p/w failure to thrive at home, found to have a unstageable sacral decubitus ulcer
POD#4 s/p laparoscopic assisted diverting loop colostomy and debridement of sacral wound
AVSS
Labs notable for normal WBC, stable HB, lytes stable
Recovering well from a surgical standpoint.
-- Advance to LRD
-- Pain control: Tylenol
-- Abx: Augmentin, per ID
-- Continue local wound care
-- Wound and second worker following: colostomy care and local wound care to sacral wound and other decubitus ulcers
-- DVT ppx: Lovenox
anticipate snf upon d/c
Subjective Data
-
Date of Service: June 13, 2025
Pt seen and examined at bedside with Dr. Nelson. Denies n/v. Tolerating diet. at bedside and questions addressed as able. Denies pain.
Objective Data
-
Intake and Output
06/12/25 06/13/25 06/14/25
06:59 06:59 06:59
Intake Total 410 / 410 1560 / 1560
Output Total 250 / 250 20 / 20 150 / 150
Balance 160 / 160 1540 / 1540 -150 / -150
Intake:
Oral fluids 410 / 410 1560 / 1560
Output:
Liquid stool amount 250 / 250 20 / 20 150 / 150
Colostomy 250 / 250 20 / 20 150 / 150
Other:
How many times incontinent 1
SMALL amount urine
How many times incontinent 1 1
MODERATE amount urine
How many times incontinent 2 1
SATURATED amount urine
Vital Signs
Temp Pulse Resp BP Pulse Ox
98.9 F 99 18 114/55 98
06/13/25 11:03 06/13/25 11:03 06/13/25 11:03 06/13/25 11:03 06/13/25 11:03
Lab Results
06/13/25 05:56
06/13/25 05:56
Calcium 8.9 mg/dl (8.4-10.2) 06/13/25 05:56
Magnesium 2.3 mg/dl (1.6-2.3) 06/11/25 07:41
Total Bilirubin 0.4 mg/dl (0.2-1.3) 06/10/25 05:35
AST 22 U/L (17-59) 06/10/25 05:35
ALT 29 U/L (0-50) 06/10/25 05:35
Alkaline Phosphatase 101 U/L (38-126) 06/10/25 05:35
Total Protein 5.0 g/dl (6.3-8.2) L 06/10/25 05:35
Albumin 2.3 g/dl (3.5-5.0) L 06/10/25 05:35
Physical Exam
-
Gen: NAD
Abd: soft, NT/ND, non-peritoneal, incisions c/d/i - no erythema, ecchymosis or drainage, ostomy PPV - stool/flatus in appliance
Patient has a novak catheter: No
Patient has a central line: No
[2025-06-13 16:33] VITALS: BP 124/62
[2025-06-13] MEDS: LOVENOX 40 MG SC (17:19)
[2025-06-13 19:07] VITALS: BP 124/68
[2025-06-13 23:35] VITALS: BP 129/64
[2025-06-14 03:12] VITALS: BP 135/73
[2025-06-14 06:00] VITALS: BMI 24.5
[2025-06-14 07:00] VITALS: BP 142/63
[2025-06-14] MEDS: FLOMAX 0.4 MG PO (08:13)
[2025-06-14] MEDS: LOW STRENGTH ASPIRIN 81 MG PO (08:13)
[2025-06-14] MEDS: TOPROL XL 12.5 MG PO (08:13)
[2025-06-14] MEDS: DECADRON 4 MG PO ×2 (08:13→20:30)
[2025-06-14] MEDS: SPIRIVA RESPIMAT 2.5 MCG 2 PUFF INH (08:21)
[2025-06-14] MEDS: ADVAIR HFA 115/21 MCG INHALER 2 PUFF INH ×2 (08:21→19:45)
[2025-06-14 11:00] VITALS: BP 119/61
--- NOTE | 2025-06-14 12:14 | W.PN.HOSP.TC ---
Today's Communication/Plan
-
Continue current care
Assessment / Plan
Assessment / Plan
General: No Apparent Distress, Comfortable and Conversant
HEENT: NormoCephalic, Moist mucous membranes, Atraumatic
Respiratory: Mild bilateral rhonchi
Cardiac: S1/S2 and Regular Rhythm; No Rub or Gallop
GI: Soft, Non Tender, Non Distended, dressing intact
Musculoskeletal: No Edema, no deformity
Skin: Warm and dry, sacral ulcer
: NO Siddiqui
Neuro: Awake, Alert, no tremor
Psych: Calm and cooperative
Acute hypoxic respiratory failure -present on admission. Oxygenation improved, now on 2 L nasal cannula.
One-view Chest x-ray done last night shows right pleural effusion with mild compressive atelectasis.
Patient states he does not use oxygen at home.
Offered him diagnostic and therapeutic right thoracentesis but he would like to hold off for now. Asked the patient again today about thoracentesis but he states he really wants to avoid as he is concerned about complications. We discussed the
risks versus the benefits and he seems to understand but still wants to avoid any further procedures.
Pleural effusion remains undiagnosed but malignancy, given underlying lung cancer, remains on the differential diagnosis. Doubt infection.
Sepsis due to infected sacral wound -sepsis present on admission.
- No evidence of osteomyelitis or abscess on CT without contrast.
Underwent laparoscopic assisted diverting loop sigmoid colostomy, debridement of sacral decubitus ulcer, 06/09.
Last recorded bowel movement 06/09 afternoon.
Now on regular diet.
Intraoperative atrial fibrillation -noted in the anesthesia records, 06/09. No known history of A-fib. Cardiology consulted. Postoperative EKG on 06/10 normal sinus rhythm.
TSH 2.62. Currently sinus rhythm.
Plan for conservative management as per cardiology.
Sacral decubital wound -underwent debridement of wound 06/09 in the OR. Healthy appearing fat and muscle noted. Osteomyelitis felt to be less likely. Completed a course of antibiotics per ID.
Multiple decubital wounds -noted on left lateral ankle, left heel, right lateral heel, right medial heel, sacrum. Wound care consulted.
Microcytic anemia -unknown acuity. Hemoglobin stable, 8.7.
No evidence of iron deficiency. B12 and folic acid levels normal. 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 He received spinal radiation treatments. Cancer was diagnosed at [facility], patient states this year. Continue Decadron.
COPD without exacerbation -on Anoro inhaler at home. Will use Spiriva, Advair in the hospital. Albuterol nebs as needed. Incentive spirometry.
Paraplegia -after spinal debulking surgery for acute cord compression at [facility].
Essential hypertension -stable.
Hyperlipidemia -atorvastatin.
Depression
DVT prophylaxis: Lovenox.
Full code
Dispo -medically stable for discharge to SNF on Sunday. Confirmed with surgical service. [place] text sent to case management.
Anticipated Discharge: Within 24 hours
Subjective/Interval History
-
Date of Service: June 14, 2025
Patient seen and examined. No complaints.
Objective Data
-
Vital Signs:
Vital Signs
Temp Pulse Resp BP Pulse Ox
97.9 F 83 18 119/61 96
06/14/25 11:00 06/14/25 11:00 06/14/25 11:00 06/14/25 11:00 06/14/25 11:00
I&O
06/13/25 06/14/25 06/15/25
06:59 06:59 06:59
Intake Total 1560 / 1560 960 / 960
Output Total 200 / 200
Balance 1540 / 1540 760 / 760
Review of Systems
-
History Source: Patient
All other systems: Reviewed and negative
[2025-06-14 15:00] VITALS: BP 121/62
--- NOTE | 2025-06-14 15:44 | W.PN.GS2 ---
Today's Communication / Plan
-
continue current diet
wound and ostomy care
Assessment / Plan
-
Patient is an 84 yo M with stage 4 lung ca and paraplegia secondary to spinal mets p/w failure to thrive at home, found to have a unstageable sacral decubitus ulcer
POD#5 s/p laparoscopic assisted diverting loop colostomy and debridement of sacral wound
AVSS
Recovering well from a surgical standpoint.
-- Ok for regular diet upon d/c
-- Pain control: Tylenol
-- Abx: completed course, appreciate ID following
-- Continue local wound care
-- Wound and ic design engineer following: colostomy care and local wound care to sacral wound and other decubitus ulcers
-- DVT ppx: Lovenox
Ok from surgical standpoint for discharge, final dispo as per medicine team. Will follow peripherally, please call with question's concerns
Subjective Data
-
Date of Service: June 14, 2025
Pt seen and examined at bedside. Denies n/v. Tolerating diet. Denies pain.
Objective Data
-
Intake and Output
06/13/25 06/14/25 06/15/25
06:59 06:59 06:59
Intake Total 1560 / 1560 960 / 960
Output Total 20 / 20 200 / 200
Balance 1540 / 1540 760 / 760
Intake:
Oral fluids 1560 / 1560 960 / 960
Output:
Liquid stool amount 20 / 20 200 / 200
Colostomy 20 / 20 200 / 200
Other:
How many times incontinent 1
SMALL amount urine
How many times incontinent 1 2
MODERATE amount urine
How many times incontinent 1 3
SATURATED amount urine
Vital Signs
Temp Pulse Resp BP Pulse Ox
97.9 F 83 18 119/61 96
06/14/25 11:00 06/14/25 11:00 06/14/25 11:00 06/14/25 11:00 06/14/25 11:00
Lab Results
06/13/25 05:56
06/13/25 05:56
Calcium 8.9 mg/dl (8.4-10.2) 06/13/25 05:56
Magnesium 2.3 mg/dl (1.6-2.3) 06/11/25 07:41
Total Bilirubin 0.4 mg/dl (0.2-1.3) 06/10/25 05:35
AST 22 U/L (17-59) 06/10/25 05:35
ALT 29 U/L (0-50) 06/10/25 05:35
Alkaline Phosphatase 101 U/L (38-126) 06/10/25 05:35
Total Protein 5.0 g/dl (6.3-8.2) L 06/10/25 05:35
Albumin 2.3 g/dl (3.5-5.0) L 06/10/25 05:35
Physical Exam
-
Gen: NAD
Abd: soft, NT/ND, non-peritoneal, incisions c/d/i - no erythema, ecchymosis or drainage, ostomy PPV - soft stool/flatus in appliance
Patient has a novak catheter: No
Patient has a central line: No
[2025-06-14] MEDS: LOVENOX 40 MG SC (17:32)
[2025-06-14] MEDS: LIPITOR 40 MG PO (17:32)
[2025-06-14 23:25] VITALS: BP 138/67
[2025-06-15 07:00] VITALS: BP 141/71; BMI 24.7
[2025-06-15] MEDS: ADVAIR HFA 115/21 MCG INHALER 2 PUFF INH (07:49)
[2025-06-15] MEDS: SPIRIVA RESPIMAT 2.5 MCG 2 PUFF INH (07:51)
[2025-06-15] MEDS: DECADRON 4 MG PO (08:33)
[2025-06-15] MEDS: FLOMAX 0.4 MG PO (08:33)
[2025-06-15] MEDS: TOPROL XL 12.5 MG PO (08:33)
[2025-06-15] MEDS: LOW STRENGTH ASPIRIN 81 MG PO (08:33)
--- NOTE | 2025-06-15 08:39 | W.PN.HOSP.TC ---
Today's Communication/Plan
-
Discharge plan
Assessment / Plan
Assessment / Plan
General: No Apparent Distress, Comfortable and Conversant
HEENT: NormoCephalic, Moist mucous membranes, Atraumatic
Respiratory: Mild bilateral rhonchi
Cardiac: S1/S2 and Regular Rhythm; No Rub or Gallop
GI: Soft, Non Tender, Non Distended, dressing intact
Musculoskeletal: No Edema, no deformity
Skin: Warm and dry, sacral ulcer
: NO Siddiqui
Neuro: Awake, Alert, no tremor
Psych: Calm and cooperative
Acute hypoxic respiratory failure -present on admission. Oxygenation improved, now on 2 L nasal cannula.
One-view Chest x-ray done last night shows right pleural effusion with mild compressive atelectasis.
Patient states he does not use oxygen at home.
Offered him diagnostic and therapeutic right thoracentesis but he would like to hold off for now. Asked the patient again today about thoracentesis but he states he really wants to avoid as he is concerned about complications. We discussed the
risks versus the benefits and he seems to understand but still wants to avoid any further procedures.
Pleural effusion remains undiagnosed but malignancy, given underlying lung cancer, remains on the differential diagnosis. Doubt infection.
Sepsis due to infected sacral wound -sepsis present on admission.
- No evidence of osteomyelitis or abscess on CT without contrast.
Underwent laparoscopic assisted diverting loop sigmoid colostomy, debridement of sacral decubitus ulcer, 06/09.
Last recorded bowel movement 06/09 afternoon.
Now on regular diet.
Intraoperative atrial fibrillation -noted in the anesthesia records, 06/09. No known history of A-fib. Cardiology consulted. Postoperative EKG on 06/10 normal sinus rhythm.
TSH 2.62. Currently sinus rhythm.
Plan for conservative management as per cardiology.
Sacral decubital wound -underwent debridement of wound 06/09 in the OR. Healthy appearing fat and muscle noted. Osteomyelitis felt to be less likely. Completed a course of antibiotics per ID.
Multiple decubital wounds -noted on left lateral ankle, left heel, right lateral heel, right medial heel, sacrum. Wound care consulted.
Microcytic anemia -unknown acuity. Hemoglobin stable, 8.7.
No evidence of iron deficiency. B12 and folic acid levels normal. 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 He received spinal radiation treatments. Cancer was diagnosed at [facility], patient states this year. Continue Decadron.
COPD without exacerbation -on Anoro inhaler at home. Will use Spiriva, Advair in the hospital. Albuterol nebs as needed. Incentive spirometry.
Paraplegia -after spinal debulking surgery for acute cord compression at [facility].
Essential hypertension -stable.
Hyperlipidemia -atorvastatin.
Depression
DVT prophylaxis: Lovenox.
Full code
Dispo -medically stable for discharge to SNF on Sunday. Confirmed with surgical service. Discussed in person with case management.
Anticipated Discharge: Today
Subjective/Interval History
-
Date of Service: June 15, 2025
No new complaints. Afebrile
Objective Data
-
Vital Signs:
Vital Signs
Temp Pulse Resp BP Pulse Ox
98.2 F 73 18 141/71 95
06/15/25 07:00 06/15/25 07:52 06/15/25 07:52 06/15/25 07:00 06/15/25 07:52
I&O
06/14/25 06/15/25 06/16/25
06:59 06:59 06:59
Intake Total 960 / 960 1080 / 1080
Output Total 200 / 200 250 / 250
Balance 760 / 760 830 / 830
--- NOTE | 2025-06-15 08:48 | W.DCSUMMARY ---
Discharge Summary
Discharge Data
Date of Admission: 06/06/25
Date of Discharge: 06/15/25
Total time spent discharging patient (in min): 32
-
Pending Results: No
Hospital Course
Patient 84 years old man with history of sacral wound and paraplegic after debulking spine surgery for cord compression from metastatic stage IV lung cancer came into the hospital with worsening sacral decubitus ulcer. Patient was placed on IV
antibiotics and ID and surgery were consulted. Surgery took him for debridement of sacral decubitus ulcer and also laparoscopic assisted diverting loop sigmoid colostomy in preparation for possible soft tissue flap as well on 06/09. Patient
completed antibiotics during this hospital stay. Course complicated with A-fib postop and cardiology consulted. He also had some episodes of nonsustained V. tach. Cardiology opted to treat him conservatively and he was given beta-blockers and no
anticoagulation at this time but would need to reconsider if recurrent issues with A-fib in the future. His echocardiogram showed EF of 50% and aortic sclerosis. Patient otherwise has remained hemodynamically stable and afebrile. Surgery
cardiology and ID have cleared him for discharge. He will be discharged to SNF today.
Discharge duration: 32 minutes
Discharge Plan
-
Patient Disposition: Half-Way/SNF
Discharge Diagnosis/Procedures: Sepsis, sacral wound infection, diverting loop colostomy, paraplegia
Condition: Good
Diet: Regular
Activity: No strenuous activity
Driving Restrictions: No driving
Bathing Restrictions: OK to Shower
Blood Work: Please PCP to order CBC, BMP within 1 week
Activity Restrictions/Additional Instructions:
Colostomy supplies: Pilar wafer #[id number], Prakash seal, Pilar pouch #[id number]. Change 2 times a week and as needed for leakage.
Call supply company (list in folder provided) for monthly Ostomy supplies after discharge (ask VN to order supplies while on service).
Follow up with surgeon.
Call [facility] RN nurse for ostomy pouching concerns or leakage problems [phone] or [phone] or [phone].
Wound Care Instructions
Sacral ulcer-clean with saline or Vashe wound cleanser, Santyl ointment prn necrotic tissue, pack with saline moistened Kerlix packing, cover with gauze pads and ABD pads, change daily and prn drainage.
R heel, L lateral ankle: paint with betadine then silicone foam change q other day.
L plantar foot open to air.
R arm: clean with saline, silicone foam change q other day
upper back: silicone foam change q 2-3 days and prn soilage.
ROHO cushion for wheelchair
Air mattress
increase protein in diet
Follow up at wound care center call for an appointment.
Referrals:
Phan Lyle MD [Active, Cardiology] - in two to four weeks
Juventino Cook MD [Family Provider, Family Practice] - in one week
Michael Boo MD [Active, Surgical] - in one week
Prescriptions:
New
metoprolol succinate 25 mg Tablet Extended Release 24 Hr
12.5 mg PO DAILY Qty: 0 0RF
Continued
atorvastatin 40 MG tablet
40 mg PO QPM
aspirin 81 MG tablet,chewable
81 mg PO DAILY
cholestyramine (with sugar) 4 GM powder in packet
4 gm PO Q48H
PreserVision AREDS 1 CAP capsule
1 cap PO DAILY
polyethylene glycol 3350 [Miralax] 17 gram Powder In Packet
17 g PO DAILY
tamsulosin [Flomax] 0.4 mg Capsule
0.4 mg PO DAILY
pantoprazole [Protonix] 40 mg Tablet,Delayed Release (Dr/Ec)
40 mg PO DAILY
ferrous sulfate 325 mg (65 mg iron) Tablet
325 mg PO DAILY
docusate sodium [Colace] 100 mg Capsule
100 mg PO DAILYPRN PRN (Reason: constipation)
albuterol sulfate 90 mcg/actuation Hfa Aerosol Inhaler
2 puff INHALATION R Q6HPRN PRN (Reason: sob)
enoxaparin [Lovenox] 40 mg/0.4 mL Syringe
40 mg SC QPM
umeclidinium-vilanterol [Anoro Ellipta] 62.5-25 mcg/actuation Blister With Device
1 inh INHALATION R DAILYPRN PRN (Reason: sob)
dexamethasone 2 MG tablet
4 mg PO BID
acetaminophen [Tylenol] 325 mg Tablet
650 mg PO Q6HPRN PRN (Reason: mild pain)
Discharge Orders:
Discharge Patient (As Directed); Ordered 06/15/25
Ordered By: Krzysztof Hendrix
Discharge Date and Time
Discharge Date/Time: 06/15/25 14:17
Print Language: KINYARWANDA
--- NOTE | 2025-06-15 09:51 | CM ---
[facility]; transport time is 1PM today.
IMM reviewed verbally with pt's daughter. Verbal consent obtained for IMM
Winter Yoder Report: [phone]
Winter Yoder
--- NOTE | 2025-06-15 10:04 | W.PN.ID1 ---
Date of Service
Date of Service: June 15, 2025
Today's Communication
- completed course of augmentin and stopped
- offloading of the wound as feasible
- follow up with PCP
ID service will no longer actively follow this patient please recall for further questions
Assessment / Plan
Sacral decubitus wound s/p debridement, without exposed bone
Paraplegia
Stage IV lung cancer with bone mets
- s/p debridement with surgery, no exposed bone, also ostomy placed
- completed course of augmentin and stopped
- offloading of the wound as feasible
- follow up with PCP
ID service will no longer actively follow this patient please recall for further questions
Chief Complaint
-: Other (sacral decubitus ulcer)
Subjective / Review of Systems
afebrile
bp stable
Vital Signs / Physical Exam
Vital Signs
Vital Signs
Temp Pulse Resp BP Pulse Ox
98.2 F 73 18 141/71 95
06/15/25 07:00 06/15/25 07:52 06/15/25 07:52 06/15/25 07:00 06/15/25 07:52
Physical Exam
Constitutional: No Acute Distress
Cardiovascular: Regular Rate and S1/S2; Negative Murmur or Rub
Pulmonary: Clear and Symmetric; Negative Wheezes or Rales
Gastrointestinal: Soft, Non Tender, Non Distended and Normal Bowel Sounds
Skin: Warm and Dry; Negative Rash or Jaundice
Wound: Other (clean, no slough or odor, muscle in the base of the wound)
Objective Data
Lab Data
Lab Results
06/13/25 05:56
06/13/25 05:56
ESR 105 mm/hour (0-20) H 06/08/25 11:22
Estimated Creat Clear 50 ml/min 06/13/25 05:56
Total Bilirubin 0.4 mg/dl (0.2-1.3) 06/10/25 05:35
AST 22 U/L (17-59) 06/10/25 05:35
ALT 29 U/L (0-50) 06/10/25 05:35
Alkaline Phosphatase 101 U/L (38-126) 06/10/25 05:35
C-Reactive Protein 167.10 mg/L (0.0-10.00) H 06/08/25 11:22
Most recent labs reviewed.
Micro Results:
06/06/25 23:48 MRSA Screen - Final
Nose No Methicillin Resistant Staphylococcus aureus isolated.
[2025-06-15 12:06] VITALS: BP 127/62
== END 2025-06-15 14:17 | DRG 853 ==
LOC: 3 WEST ACU 16:07
PROVIDERS: Hospitalist; Surgery; ADMITTING PHYSICIAN Internal Medicine; ATTENDING PHYSICIAN Hospitalist; CONSULT PHYSICIAN Internal Medicine Cardiovascular Disease; CONSULT PHYSICIAN Surgery; EMERGENCY PHYSICIAN Emergency Medicine; FAMILY PHYSICIAN Family Medicine; OTHER PHYSICIAN Student in an Organized Health Care Education/Training Program
PROC: 0D1N4Z4 Bypass Sigmoid Colon to Cutaneous, Percutaneous Endoscopic Approach (ICD-10-PCS; 2025-06-09)
PROC: 0JB70ZZ Excision of Back Subcutaneous Tissue and Fascia, Open Approach (ICD-10-PCS; 2025-06-09)
DX: A41.9 Sepsis, unspecified organism (principal); J96.01 Acute respiratory failure with hypoxia; L89.153 Pressure ulcer of sacral region, stage 3; I96 Gangrene, not elsewhere classified; G82.20 Paraplegia, unspecified; I47.20 Ventricular tachycardia, unspecified; J90 Pleural effusion, not elsewhere classified; L97.419 Non-pressure chronic ulcer of right heel and midfoot with unspecified severity; Z85.118 Personal history of other malignant neoplasm of bronchus and lung; Z85.46 Personal history of malignant neoplasm of prostate; Z85.528 Personal history of other malignant neoplasm of kidney; Z87.891 Personal history of nicotine dependence; Z85.830 Personal history of malignant neoplasm of bone; I48.91 Unspecified atrial fibrillation; I70.0 Atherosclerosis of aorta; I10 Essential (primary) hypertension; F32.A Depression, unspecified; Z99.3 Dependence on wheelchair; Z79.82 Long term (current) use of aspirin; Z79.899 Other long term (current) drug therapy; Z90.49 Acquired absence of other specified parts of digestive tract; Z90.5 Acquired absence of kidney; Z91.041 Radiographic dye allergy status; Z92.3 Personal history of irradiation; R62.7 Adult failure to thrive; E78.00 Pure hypercholesterolemia, unspecified; K66.0 Peritoneal adhesions (postprocedural) (postinfection)
CPT/HCPCS: 71045; 72192; 80048; 80053; 82607; 82728; 82746; 83540; 83550; 83735; 84443; 85025; 85027; 85045; 85652; 86140; 87070; 93005; 93306; 94640; 96365; 97163; 99285

== ENCOUNTER → 2025-06-22 10:00 | Outpatient (REF) | payer OTHER, MEDICARE, BC, SELFPAY ==
[2025-06-22 10:40] LABS: Hematocrit 31.9 % (39.0-52.0); Hemoglobin 9.2 g/dL (13.0-18.0); Mean Corp Hgb Conc. 28.8 g/dL (33.0-37.0); Mean Corpuscular Volume 78.8 fL (80.0-94.0); Nucleated Red Blood Cells % 0 % (-); Platelet Count 238 10^3/uL (130-400); Red Cell Dist. Width 20.5 % (11.5-14.5)
[2025-06-22 10:53] LABS: Blood Urea Nitrogen 25 mg/dl (9-20); Calcium 8.6 mg/dl (8.4-10.2); Carbon Dioxide 28 mmol/L (22-30); Chloride 105 mmol/L (98-107); Glucose 116 mg/dl (70-99); Potassium 4.8 mmol/L (3.5-5.1); Sodium 135 mmol/L (135-145); eGFR > 60.00
[2025-06-22 12:29] LABS: Anisocytosis 1+; Hypochromasia 1+; Microcytosis 1+; Normal RBC Morphology No; Ovalocytes 1+
== END ==
LOC: OLABN 10:00
PROVIDERS: ATTENDING PHYSICIAN Student in an Organized Health Care Education/Training Program
DX: I25.9 Chronic ischemic heart disease, unspecified (principal)
CPT/HCPCS: 36415; 80048; 85025

== ENCOUNTER → 2025-07-01 09:52 | Outpatient (REF) | payer MEDICARE, BC, SELFPAY ==
[2025-07-02 12:58] LABS: Urine Character Clear (Clear)
[2025-07-02 14:22] LABS: Urine Red Blood Cell 0-2 /HPF (0-2)
[2025-07-02 14:23] LABS: Urine White Cell 70-80 /HPF (0-5)
== END ==
LOC: OLABN 09:52
PROVIDERS: ATTENDING PHYSICIAN Student in an Organized Health Care Education/Training Program
DX: R53.83 Other fatigue (principal); C79.51 Secondary malignant neoplasm of bone; I10 Essential (primary) hypertension; D64.9 Anemia, unspecified
CPT/HCPCS: 81003; 81015; 87077; 87086

== ENCOUNTER → 2025-07-02 09:46 | Outpatient (REF) | payer MEDICARE, BC, SELFPAY ==
[2025-07-02 12:29] LABS: Hematocrit 29.3 % (39.0-52.0); Hemoglobin 8.5 g/dL (13.0-18.0); Mean Corp Hgb Conc. 29.0 g/dL (33.0-37.0); Mean Corpuscular Volume 75.3 fL (80.0-94.0); Nucleated Red Blood Cells % 0 % (-); Platelet Count 190 10^3/uL (130-400); Red Cell Dist. Width 20.3 % (11.5-14.5)
[2025-07-02 13:27] LABS: Blood Urea Nitrogen 28 mg/dl (9-20); Calcium 8.3 mg/dl (8.4-10.2); Carbon Dioxide 32 mmol/L (22-30); Chloride 101 mmol/L (98-107); Glucose 144 mg/dl (70-99); Potassium 4.9 mmol/L (3.5-5.1); Sodium 136 mmol/L (135-145); eGFR > 60.00
== END ==
LOC: OLABN 09:46
PROVIDERS: ATTENDING PHYSICIAN Student in an Organized Health Care Education/Training Program
DX: R53.83 Other fatigue (principal); C79.51 Secondary malignant neoplasm of bone; I10 Essential (primary) hypertension; D64.9 Anemia, unspecified
CPT/HCPCS: 36415; 80048; 85025

== ENCOUNTER → 2025-07-08 09:42 | Outpatient (REF) | payer OTHER, MEDICARE, BC, SELFPAY ==
[2025-07-08 10:33] LABS: Blood Urea Nitrogen 28 mg/dl (9-20); Calcium 8.6 mg/dl (8.4-10.2); Carbon Dioxide 31 mmol/L (22-30); Chloride 100 mmol/L (98-107); Glucose 106 mg/dl (70-99); Magnesium 2.3 mg/dl (1.6-2.3); Potassium 4.7 mmol/L (3.5-5.1); Sodium 132 mmol/L (135-145); eGFR > 60.00
[2025-07-08 11:36] LABS: Hematocrit 29.0 % (39.0-52.0); Hemoglobin 8.6 g/dL (13.0-18.0); Mean Corp Hgb Conc. 29.7 g/dL (33.0-37.0); Mean Corpuscular Volume 75.5 fL (80.0-94.0); Nucleated Red Blood Cells % 0 % (-); Red Cell Dist. Width 19.8 % (11.5-14.5)
== END ==
LOC: OLABN 09:42
PROVIDERS: ATTENDING PHYSICIAN Student in an Organized Health Care Education/Training Program
DX: C34.90 Malignant neoplasm of unspecified part of unspecified bronchus or lung (principal)
CPT/HCPCS: 36415; 80048; 83735; 85025

== ENCOUNTER → 2025-07-15 11:59 | Outpatient (REF) | payer OTHER, MEDICARE, BC, SELFPAY ==
[2025-07-15 13:17] LABS: Hematocrit 28.1 % (39.0-52.0); Hemoglobin 8.6 g/dL (13.0-18.0); Mean Corp Hgb Conc. 30.6 g/dL (33.0-37.0); Mean Corpuscular Volume 71.1 fL (80.0-94.0); Nucleated Red Blood Cells % 0 % (-); Red Cell Dist. Width 19.9 % (11.5-14.5)
[2025-07-15 13:37] LABS: Blood Urea Nitrogen 21 mg/dl (9-20); Calcium 8.7 mg/dl (8.4-10.2); Carbon Dioxide 28 mmol/L (22-30); Chloride 101 mmol/L (98-107); Glucose 88 mg/dl (70-99); Magnesium 2.2 mg/dl (1.6-2.3); Potassium 4.5 mmol/L (3.5-5.1); Sodium 130 mmol/L (135-145); eGFR > 60.00
== END ==
LOC: OLABN 11:59
PROVIDERS: ATTENDING PHYSICIAN Student in an Organized Health Care Education/Training Program
DX: C34.90 Malignant neoplasm of unspecified part of unspecified bronchus or lung (principal)
CPT/HCPCS: 36415; 80048; 83735; 85025